=== PATIENT | male | born 1940 | race Caucasian/White ===

== ENCOUNTER → 2017-11-09 | Outpatient (CLI) | payer OTHER ==
[~2017-11-09] MED LIST: ALLOPOW4; AMIO200T4 PO
== END | disposition home or self-care (01) ==
LOC: C.LABPVFM 08:22
PROVIDERS: ATTEND Internal Medicine Cardiovascular Disease
DX: E78.5 Hyperlipidemia, unspecified (principal)

== ENCOUNTER → 2017-12-24 | Outpatient (CLI) | payer OTHER ==
[2017-12-24 18:13] LABS: BLOOD UREA NITROGEN 33 mg/dl (7-18); CALCIUM 8.9 mg/dl (8.5-10.1); CARBON DIOXIDE 23 mmol/L (21-32); CREATININE 2.11 mg/dl (0.60-1.40); GLUCOSE 137 mg/dl (70-99); SODIUM 140 mmol/L (136-145)
[2017-12-24 18:15] LABS: URIC ACID 5.6 mg/dl (2.6-7.2)
== END | disposition home or self-care (01) ==
LOC: C.LABPVFM 13:27
PROVIDERS: ATTEND Internal Medicine
DX: M10.9 Gout, unspecified (principal)

== ENCOUNTER → 2018-04-02 | Day surgery (SDC) | payer OTHER ==
[2018-02-22 14:11] VITALS: Ht 177.8 cm; Wt 122.7 kg
[~2018-04-02] VITALS: Ht 177.8 cm; Wt 122.7 kg
[~2018-04-02] MED LIST changes: +500ML BSS 0.3ML EPI 1:1000PF IRRIG ONE; +ACET-1256 PO; +ACETAMINOPHEN 325 MG TAB PO PRN; +ALLO100T PO; -ALLOPOW4; +AMVISC PLUS 0.8ML SYRINGE INT OCU ONE; +ASPI-589 PO; +ATEN-173 PO; +ATOR-24 PO; +ATROPINE SULFATE 0.1 MG/ML 5ML SYR IV PRN; +BSS FLUSH ONE; +DILT-113 PO; +EpHEDrine SULFATE INJ 50 MG/ML AMP IV PRN; +EpINEphrine INJ 1MG/ML AMP 1 MG/ML AMP ONE; +HYDR-4715 PO; +HydrALAZINE HCL 20 MG/ML VIAL ONE; +INSTA-FLEX PO; +LACTATED RINGER'S 1000ML 500 ML IV SCH; +LIDOCAINE 3.5% OPH GEL PER APPLICATION CHARGE ONE; +LIDOCAINE HCL 1% MPF 2 ML VIAL ONE; +LISI-725 PO; +MIDAZOLAM HCL 1 MG/ML 2ML VIAL ONE; +ONDANSETRON INJ 2 MG/ML 2 ML VIAL IV PRN; +POVIDONE-IODINE OP SOLN 30 ML BTL ONE; +PROPARACAINE 0.5% OP SOLN PER DROP CHARGE OPL SCH; +TERA5CAP PO; +TOBRAMYCIN/DEXAMETHASONE OPH OINT PER APPLN CHARGE ONE; +TURM500T PO
--- NOTE | 2018-04-02 08:59 | History & Physical Bridge - SC ---
H&P Re-Evaluation Bridge Note: I have examined the patient, reviewed the History & Physical and in the interval since the performance of the History & Physical I have noted the following changes of clinical significance: Diagnosis: Left Cataract Procedure: Left Cataract Removal with Lens Implant No changes noted
[2018-04-02] MEDS: PHENYLEPHRINE HCL 2.5% OP SOLN PER DROP CHARGE OPL SCH ×2 (09:01→09:09)
[2018-04-02] MEDS: TROPICAMIDE 1% OP SOLN PER DROP CHARGE OPL SCH ×2 (09:02→09:10)
[2018-04-02] MEDS: CYCLOPENTOLATE HCL 1% OP SOLN PER DROP CHARGE OPL SCH ×2 (09:03→09:12)
[2018-04-02] MEDS: KETOROLAC 0.5% OP SOLN PER DROP CHARGE OPL SCH ×2 (09:04→09:14)
[2018-04-02] MEDS: GATIFLOXACIN OP SOLN PER DROP CHARGE OPL SCH ×2 (09:05→09:16)
--- NOTE | 2018-04-02 09:41 | [facility] Operative Report ---
Operative Report Date of Service Apr 02, 2018. Operative Report 1. PREOPERATIVE DIAGNOSIS: Cataract of the left eye. 2. POSTOPERATIVE DIAGNOSIS: Same. 3. PROCEDURE: Phacoemulsification with intraocular lens implantation of the left eye. SURGEON: Dr. Ryan Khan. ANESTHESIA: Topical Lidocaine gel, 1% Non- Preserved intracameral Lidocaine, and monitored intravenous sedation. INDICATIONS FOR THE PROCEDURE: The patient is a 77 - year-old male with a history of cataract of the left eye causing significant visual impairment. The details of the proposed procedure were explained to the patient who asked appropriate questions and following discussion of all risks, benefits and alternatives agreed to have the procedure done. 4. OPERATION AND FINDINGS: DESCRIPTION OF PROCEDURE: After informed consent was obtained, the patient was brought to the Operating Room at the [facility]. The patient was placed in a supine position and then the left eye was prepped and draped in the usual sterile fashion for intraocular surgery. A drop of topical Lidocaine gel was placed in the operative eye. A wire lid speculum was then placed in the fornices. A corneal paracentesis was then created temporally. The Non-Preserved Lidocaine was then instilled into the anterior chamber. The anterior chamber was then pressurized with viscoelastic. A 2.0 mm clear corneal incision was then created temporally. A cystotome was inserted into the anterior chamber and used to create a tear in the anterior lens capsule. This capsular tear was then used to create a small flap and the flap was dragged in a counterclockwise direction in order to create a continuous curvilinear capsulorrhexis. Hydrodissection was accomplished with balanced salt solution. Phacoemulsification of the lens nucleus was then performed in a standard [id number] technique. The phaco time was 19 seconds with an average power of 14 %. The remaining cortical material was removed using irrigation aspiration. The capsular bag was then filled with viscoelastic. A [employer] MI60L +25.0 diopters lens was then loaded into the injector and injected into the capsular bag. The remaining viscoelastic was removed with the irrigation aspiration handpiece. The wound was hydrated and then checked and found to be watertight. The intraocular pressure was checked and found to be adequate. The wire lid speculum was removed and the patient's face was cleaned and dried. TobraDex ointment was placed in the inferior fornix. The patient was discharged to the Recovery Room having tolerated the procedure well. There were no complications. The patient will be seen tomorrow in the office for follow-up. I attest to the content of the Intraoperative Record and any orders documented therein. Any exceptions are noted below.
--- NOTE | 2018-04-02 09:42 | Discharge Instructions-SurgCtr ---
Discharge Instructions Date of Service Apr 02, 2018. Visit Reason for Visit: Cataract Left Eye Discharge Discharge Diagnosis / Problem: cataract Discharge Goals Goal(s): Improve function Activity Recommendations Activity Limitations: per Instructions/Follow-up section Anesthesia . Post Anesthesia Instructions: If you have had General Anesthesia or IV Sedation: * Do not drive today. * Resume driving when surgeon permits. * Do not make important decisions or sign legal documents today. * Call surgeon for: 1. Temperature elevations greater than 101 degrees F. 2. Uncontrollable pain. 3. Excessive bleeding. 4. Persistent nausea and vomiting. 5. Medication intolerance (nausea, vomiting or rash). * For nausea and vomiting use only clear liquids such as: tea, soda, bouillon until nausea subsides, then gradually increase diet as tolerated. * If you have any concerns or questions, call your surgeon's office. If physician is unavailable and it is an emergency, call 911 or go to the nearest emergency room. . Diet Recommendations Home Diet: resume previous diet Pending Studies Studies pending at discharge: no Medical Emergencies . Who to Call and When: Medical Emergencies: If at any time you feel your situation is an emergency, please call 911 immediately. . Non-Emergent Contact Non-Emergency issues call your: Interactive Producer . . "Provider Documentation" section prepared by Ryan Khan. .
[2018-04-02 09:44] VITALS: TEMP 36.2
--- NOTE | 2018-04-02 09:54 | Anesthesia Progress Nt - [facility] ---
Anesthesia Post Op Note Date & Time Apr 02, 2018 at 09:54 Vital Signs Pain Intensity: 0 Vital Signs Past 12 Hours Date Time Temp Pulse Resp B/P (MAP) Pulse Ox O2 Delivery O2 Flow Rate FiO2 04/02/18 09:44 36.2 76 18 186/82 (116) 96 Room Air 04/02/18 08:23 37.0 45 16 205/106 (139) 96 Room Air Notes Mental Status: alert / awake / arousable, participated in evaluation Pt Amnestic to Procedure: Yes Nausea / Vomiting: adequately controlled Pain: adequately controlled Airway Patency, RR, SpO2: stable & adequate BP & HR: stable & adequate Hydration State: stable & adequate Anesthetic Complications: no major complications apparent
[2018-04-02 10:06] VITALS: BP 160/76; PULSE 51; O2SAT 96
== END | disposition home or self-care (01) ==
LOC: X.SURG 07:46
PROVIDERS: ATTEND Ophthalmology
DX: H26.9 Unspecified cataract (principal); E11.9 Type 2 diabetes mellitus without complications; I12.9 Hypertensive chronic kidney disease with stage 1 through stage 4 chronic kidney disease, or unspecified chronic kidney disease; I48.2 Chronic atrial fibrillation; E66.9 Obesity, unspecified; M10.9 Gout, unspecified; N18.3 Chronic kidney disease, stage 3 (moderate); E78.5 Hyperlipidemia, unspecified; M17.10 Unilateral primary osteoarthritis, unspecified knee; E11.22 Type 2 diabetes mellitus with diabetic chronic kidney disease; Z79.899 Other long term (current) drug therapy; Z79.82 Long term (current) use of aspirin; Z82.49 Family history of ischemic heart disease and other diseases of the circulatory system; Z83.3 Family history of diabetes mellitus; Z79.01 Long term (current) use of anticoagulants

== ENCOUNTER 2021-02-04 15:49 | Observation (INO) ==
[2021-02-04 18:04] LABS: Basophils # (auto) 0.03 K/uL (0-0.2); Basophils % (auto) 0.5 %; Eosinophils # (auto) 0.36 K/uL (0-0.5); Eosinophils % (auto) 6.4 %; Hematocrit (blood only) 32.4 % (42-52); Hemoglobin 10.4 g/dL (14.0-18.0); Immature Granulocytes # (auto) 0.01 K/uL (0.00-0.02); Immature Granulocytes % (auto) 0.2 %; Lymphocytes # (auto) 0.82 K/uL (1.2-3.4); Lymphocytes % (auto) 14.6 %; Mean Corpuscular Hemoglobin 30.5 pg (25-34); Mean Corpuscular Hgb Conc 32.1 g/dL (32-36); Mean Platelet Volume 9.4 fL (7.4-10.4); Monocytes # (auto) 0.21 K/uL (0.11-0.59); Monocytes % (auto) 3.7 %; Neutrophils % (auto) 74.6 %; Platelet Count 161 K/uL (130-400); RDW Coefficient of Variation 15.5 % (11.5-14.5); RDW Standard Deviation 53.7 fL (36.4-46.3); Red Blood Count 3.41 M/uL (4.7-6.1); White Blood Count 5.63 K/uL (4.8-10.8)
[2021-02-04 18:22] LABS: Albumin Level 3.1 gm/dl (3.4-5.0); Aspartate Aminotransferase 22 U/L (15-37); BUN Creatinine Ratio 16.8 (10-20); Blood Urea Nitrogen 51 mg/dl (7-18); Calcium 8.9 mg/dl (8.5-10.1); Carbon Dioxide 26 mmol/L (21-32); Chloride 108 mmol/L (98-107); Est GFR (African American) 21.8 ml/min; Est GFR (Non-African American) 18.8 ml/min; Glucose 171 mg/dl (70-99); Lipase 172 U/L (73-393); Magnesium 2.7 mg/dl (1.8-2.4); Sodium 142 mmol/L (136-145)
[2021-02-04 18:25] LABS: Alanine Aminotransferase 25 U/L (12-78); Albumin Globulin Ratio 0.9 (0.9-2); Alkaline Phosphatase 86 U/L (45-117); Bilirubin,Total 0.3 mg/dl (0.2-1); Globulin 3.3 gm/dl (2.5-4.0); Total Protein 6.4 gm/dl (6.4-8.2)
--- NOTE | 2021-02-04 19:36 | Emergency Department Note ---
Impression & Plan JENNIFER (acute kidney injury) ED Provider Note INFORMANT: Patient and ED PROVIDER(S): Negro Sandoval MD CHIEF COMPLAINT: Abnormal kidney function PLAN: Disposition: Admitted Condition: Good Outpatient prescription management: none Referral: None MEDICAL DECISION MAKING: Patient presented to the emergency department because of abnormal labs. The patient has had worsening renal function. Blood work was obtained. He has a normal potassium. His renal function has worsened with a creatinine of 3.01. I consulted with Dr. Ryder of the [facility] nephrology. Unfortunately patient's case is somewhat complicated as he has severe hypertension and is on multiple medications. In light of the difficulty managing his medications and blood pressure issues we elected to have the patient come into the hospitalist service. The patient and are very much in agreement. He will need management of his hypertension, modification of his medications to protect his renal function, and also will need some type of diuresis given his peripheral edema. Consultation was made with , [facility] hospitalist service patient was evaluated in the ER for further management. Triage Nursing notes reviewed and agree them. Vital Signs: reviewed and remarkable for no significant abnormalities Differential diagnosis: Infection, dehydration, metabolic abnormality, electrolyte disturbance, anemia, hypoxia, cardiac sources, intracerebral event, toxicologic, neurologic, as well as other pathologies. JENNIFER, Diagnostics interpreted by me: ECG: Twelve-lead ECG reveals a sinus bradycardia with first-degree AV block at 50 bpm. LVH present. Inferior Q waves present. Possible anteroseptal infarct. No ST elevation. Normal axis. Cardiac Monitoring: Cardiac monitoring ordered by me: The patient was placed on continuous cardiac monitoring and observed. It revealed a normal sinus rhythm at 62 beats per minute without ectopy or evidence of dysrhythmia. Imaging studies: CT scan of the abdomen pelvis does not reveal any evidence of renal outflow tract obstruction. I refer you to the EMR for further details. HPI: The patient is a 80 year old male who presents to the Emergency Room with complaints of abnormal labs. This started today at his blood draw and is noted to be due to his kidney function. The patient states his PCP was doing labs to check his kidney function and he was notified that it is gotten worse and the patient was directed to the ER. The patient also notes the following associated symptoms, none. The patient has had no medication changes or prescriptions for relieving factors. Current pain is rated as 0/10. Patient has history of chronic low back pain if he moves the wrong way but currently is doing well. Pt denies LOC, headache, fevers, chills, diaphoresis, visual changes, neck pain, chest pain, breathing difficulties, nausea, vomiting, abdominal pain, back pain, melena, hematochezia, urinary symptoms, numbness, weakness, lymphadenopathy, rash, or other complaints. ROS: See above HPI for pertinent positives & negatives. A total of 10 systems reviewed and were otherwise negative. PAST MEDICAL HISTORY:See Below , renal insufficiency, anemia PAST SURGICAL HISTORY:See Below, FAMILY HISTORY:See Below SOCIAL HISTORY:See Below, HOME MEDICATIONS:See Below ALLERGIES:See Below VITALS:See Below PHYSICAL EXAMINATION: GENERAL: Awake, alert, well-appearing, in no distress HENT: Normocephalic, atraumatic. Oropharynx unremarkable. EYES: Normal conjunctiva. Sclera non-icteric. NECK: Inspection normal. Non-tender. Supple. No nuchal rigidity. FROM. No masses. RESPIRATORY: Clear to auscultation. No wheezes. No rales. Normal respiratory effort. CARDIAC: Normal rate. Normal rhythm. No murmurs. No rubs. Extremities warm and well perfused. Pulses equal. No JVD. GI: Soft, non-distended. No tenderness to palpation. No rebound or guarding. No masses. RECTAL: Deferred. MUSCULOSKELETAL: Atraumatic. Chest examination reveals no tenderness. The back is symmetrical on inspection without obvious abnormality. There is no CVA tenderness to palpation. No joint edema. LOWER EXTREMITIES: Calves are equal size bilaterally and non-tender. 2+ edema. No discoloration. NEURO: Normal sensorium. No sensory or motor deficits noted. SKIN: No rash or jaundice noted. Negro Sandoval MD Past Med/Surg History Medical History (Updated 02/04/21 @ 19:33 by Negro Sandoval MD) Anemia Hypertension Social History Smoking Status: Never smoker Feels Safe at Home: Yes Allergies Allergies Allergy/AdvReac Type Severity Reaction Status Date / Time No Known Allergies Allergy Unknown Verified 02/04/21 17:09 Home Meds Home Medications Medication Instructions Recorded Confirmed atorvastatin 40 mg tablet 40 mg PO QPM 06/06/19 02/04/21 blood sugar diagnostic #10 ea 06/06/19 12/20/20 cyanocobalamin (vitamin B-12) 500 500 mcg PO DAILY 11/12/20 02/04/21 mcg tablet acetaminophen 325 mg capsule 650 mg PO Q4H PRN cap 12/20/20 02/04/21 calcitriol 0.25 mcg capsule 0.25 mcg PO MOWEFR cap 12/20/20 02/04/21 cholecalciferol (vitamin D3) 50 50 mcg PO DAILY 12/20/20 02/04/21 mcg (2,000 unit) capsule docusate sodium 100 mg capsule 100 mg PO BID 12/20/20 02/04/21 hydralazine 50 mg tablet 75 mg PO BID tab 12/20/20 02/04/21 multivitamin with minerals 1 tab PO DAILY 12/20/20 02/04/21 polyethylene glycol 3350 17 17 g PO DAILY 12/20/20 02/04/21 gram/dose oral powder atenolol 25 mg PO BID 02/04/21 02/04/21 diltiazem HCl 180 mg PO DAILY 02/04/21 02/04/21 furosemide 20 mg PO DAILY 02/04/21 02/04/21 gabapentin 100 mg PO BID 02/04/21 02/04/21 lisinopril 20 mg PO BID 02/04/21 02/04/21 terazosin 5 mg PO HS 02/04/21 02/04/21 Previous Rx's Medication Instructions Recorded allopurinol 100 mg tablet 100 mg PO BID #60 tab 04/14/19 amiodarone 200 mg tablet 200 mg PO DAILY #90 tab 01/18/21 Results & Data (ED) Vital Signs Vital Signs - 24 hr 02/04/21 15:57 02/04/21 17:35 02/04/21 18:06 Temperature 36.5 C Temperature Source Temporal Artery Scan Pulse Rate 59 L 70 Pulse Rate from SpO2 Sensor Pulse Strength [Bilateral Dorsalis Pedis] Respiratory Rate 20 20 Respiratory Effort / Characteristics Non-Labored Spontaneous Respiratory Depth Normal Respiratory Pattern Blood Pressure 159/82 H Blood Pressure Mean 107 Pulse Oximetry 95 Oxygen Delivery Method Room Air Room Air Sepsis Recent Fever Within 48 Hours No Sepsis New/Unexplained Change in Mental Status N/A Sepsis Action Taken by Nursing No Action Required 02/04/21 18:30 02/04/21 18:38 02/04/21 19:24 Temperature Temperature Source Pulse Rate 56 L 60 Pulse Rate from SpO2 Sensor Pulse Strength [Bilateral Dorsalis Pedis] Normal Respiratory Rate 15 23 Respiratory Effort / Characteristics Non-Labored Spontaneous Respiratory Depth Normal Respiratory Pattern Regular Blood Pressure 174/84 H Blood Pressure Mean 114 Pulse Oximetry Oxygen Delivery Method Sepsis Recent Fever Within 48 Hours Sepsis New/Unexplained Change in Mental Status Sepsis Action Taken by Nursing 02/04/21 19:31 02/04/21 20:01 02/04/21 20:03 Temperature Temperature Source Pulse Rate 64 57 L 58 L Pulse Rate from SpO2 Sensor 64 58 L 58 L Pulse Strength [Bilateral Dorsalis Pedis] Respiratory Rate 24 17 18 Respiratory Effort / Characteristics Respiratory Depth Respiratory Pattern Blood Pressure 183/91 H 203/87 H 209/98 H Blood Pressure Mean 121 125 135 Pulse Oximetry 96 95 95 Oxygen Delivery Method Room Air Room Air Room Air Sepsis Recent Fever Within 48 Hours Sepsis New/Unexplained Change in Mental Status Sepsis Action Taken by Nursing 02/04/21 20:26 02/04/21 21:01 Temperature Temperature Source Pulse Rate 59 L 62 Pulse Rate from SpO2 Sensor 59 L 62 Pulse Strength [Bilateral Dorsalis Pedis] Respiratory Rate 14 21 Respiratory Effort / Characteristics Respiratory Depth Respiratory Pattern Blood Pressure 197/92 H 197/101 H Blood Pressure Mean 127 133 Pulse Oximetry 96 95 Oxygen Delivery Method Room Air Room Air Sepsis Recent Fever Within 48 Hours Sepsis New/Unexplained Change in Mental Status Sepsis Action Taken by Nursing Laboratory Data Result diagrams: 02/04/21 17:55 02/04/21 17:55 Lab Results 02/04/21 02/04/21 02/04/21 Range/Units 17:55 17:55 19:27 WBC 5.63 (4.8-10.8) K/uL RBC 3.41 L (4.7-6.1) M/uL Hgb 10.4 L (14.0-18.0) g/dL Hct 32.4 L (42-52) % MCV 95.0 (80-100) fL MCH 30.5 (25-34) pg MCHC 32.1 (32-36) g/dL RDW Std Deviation 53.7 H (36.4-46.3) fL RDW Coeff of Joanne 15.5 H (11.5-14.5) % Plt Count 161 (130-400) K/uL MPV 9.4 (7.4-10.4) fL Immature Gran % (Auto) 0.2 % Neut % (Auto) 74.6 % Lymph % (Auto) 14.6 % Green % (Auto) 3.7 % Eos % (Auto) 6.4 % Baso % (Auto) 0.5 % Neut # (Auto) 4.20 (1.4-6.5) K/uL Lymph # (Auto) 0.82 L (1.2-3.4) K/uL Green # (Auto) 0.21 (0.11-0.59) K/uL Eos # (Auto) 0.36 (0-0.5) K/uL Baso # (Auto) 0.03 (0-0.2) K/uL Immature Gran # (Auto) 0.01 (0.00-0.02) K/uL Sodium 142 (136-145) mmol/L Potassium 4.0 (3.5-5.1) mmol/L Chloride 108 H (98-107) mmol/L Carbon Dioxide 26 (21-32) mmol/L Anion Gap 8.0 (3-11) BUN 51 H (7-18) mg/dl Creatinine 3.01 H (0.6-1.4) mg/dl Est Cr Clr Drug Dosing Not Reportable Est GFR ( Amer) 21.8 ml/min Est GFR (Non-Af Amer) 18.8 ml/min BUN/Creatinine Ratio 16.8 (10-20) Glucose 171 H (70-99) mg/dl Calcium 8.9 (8.5-10.1) mg/dl Magnesium 2.7 H (1.8-2.4) mg/dl Total Bilirubin 0.3 (0.2-1) mg/dl AST 22 (15-37) U/L ALT 25 (12-78) U/L Alkaline Phosphatase 86 (45-117) U/L Total Protein 6.4 (6.4-8.2) gm/dl Albumin 3.1 L (3.4-5.0) gm/dl Globulin 3.3 (2.5-4.0) gm/dl Albumin/Globulin Ratio 0.9 (0.9-2) Lipase 172 (73-393) U/L Urine Color Yellow Urine Appearance Clear (Clear) Urine pH 5.0 (4.5-7.5) Ur Specific [place] 1.017 (1.000-1.030) Urine Protein 1+ H (Negative) Urine Glucose (UA) Negative (Negative) Urine Ketones Negative (Negative) Urine Blood Negative (Negative) Urine Nitrite Negative (Negative) Urine Bilirubin Negative (Negative) Urine Urobilinogen Negative (Negative) Ur Leukocyte Esterase 1+ H (Negative) Urine WBC (Auto) 5-10 H (0-5) /hpf Urine RBC (Auto) 0-4 (0-4) /hpf U Hyaline Cast (Auto) 1-5 (0-5) /lpf U Epithel Cells (Auto) >30 H (0-5) /lpf Urine Bacteria (Auto) Negative (Negative) Imaging Data Radiologist's Impression: Abdomen/Pelvis CT 02/04/21 19:46 CT OF THE ABDOMEN AND PELVIS WITHOUT CONTRAST CLINICAL HISTORY: Acute kidney injury. COMPARISON STUDY: Renal ultrasound June 27, 2010. TECHNIQUE: Axial images of the abdomen and pelvis were obtained without IV contrast. Images were reviewed in the axial, sagittal, and coronal planes. Automated exposure control was utilized for the study. A dose lowering technique was utilized adhering to the principles of ALARA. FINDINGS: This exam is compromised by body wall contacting the gantry. Dilatation of visualized portions of the ascending aorta, measuring up to 4.9 cm is noted. Moderate cardiomegaly is noted with trace pericardial fluid. There is left gynecomastia. The liver is slightly dense. Note is made of a 2.4 cm calcified gallstone within the gallbladder. There is no pericholecystic infiltration. Mild splenomegaly is noted. Low-attenuation left adrenal nodule favors an adenoma. There is no peripancreatic infiltration. There is no evidence for a bowel obstruction. There is moderate to marked bilateral renal atrophy. There is no hydronephrosis. No ureteral calculi are present. There is a possible punctate left renal calculus. There are multiple water attenuation bilateral renal lesions. There are a few small hyperdense bilateral renal lesions. The largest is a 1.6 cm lesion within the midpole of the left kidney. Progressive loss of height of the L5 compression fracture is noted since CT of November 05, 2020. There are no suspicious lesions within visualized skeletal structures. Bladder is mildly distended. IMPRESSION: 1. Moderate to marked bilateral renal atrophy. No ureteral calculi. No hydronephrosis. Possible punctate left renal calculus. Mildly distended bladder. 2. Cholelithiasis. 3. Cardiomegaly. Dilatation of visualized portions of the ascending aorta, measuring up to 4.9 cm. 4. No bowel obstruction. 5. Multiple water attenuation bilateral renal lesions suggestive of cysts. Several hyperdense left renal lesions which could reflect hyperdense cysts or small solid renal lesions. ACT 112: Negative or not required by law. Electronically signed by: Del Rowan M.D. 02/04/2021 9:14 PM Discharge Plan Visit Data Chief Complaint: Abnormal Labs/Diagnostic Testing Stated Complaint: SENT BY - KIDNEYS NOT FUNCTIONING CORRECTLY ED Provider: Negro Sandoval Discharge Problem: JENNIFER (acute kidney injury) Forms Stand Alone Forms: My [facility] I Love QC Prescriptions Prescriptions: No Action allopurinol 100 mg tablet 100 mg PO BID Qty: 60 RF: 2 hydralazine 50 mg tablet 75 mg PO BID RF: 0 amiodarone 200 mg tablet 200 mg PO DAILY Qty: 90 RF: 3 atorvastatin 40 mg tablet 40 mg PO QPM RF: 0 (DME) OneTouch Ultra Blue Test Strip strip See Dose Instructions .ROUTE .MEDSUPPLY Qty: 10 RF: 0 cyanocobalamin (vitamin B-12) 500 mcg tablet 500 mcg PO DAILY RF: 0 cholecalciferol (vitamin D3) 50 mcg (2,000 unit) capsule 50 mcg PO DAILY RF: 0 polyethylene glycol 3350 17 gram/dose powder 17 g PO DAILY RF: 0 multivitamin with minerals Tablet 1 tab PO DAILY RF: 0 docusate sodium 100 mg capsule 100 mg PO BID RF: 0 calcitriol [Rocaltrol] 0.25 mcg capsule 0.25 mcg PO MOWEFR RF: 0 acetaminophen 325 mg capsule 650 mg PO Q4H PRN (Reason: Fever Or Pain) RF: 0 furosemide 20 mg tablet 20 mg PO DAILY RF: 0 diltiazem HCl 180 mg capsule,extended release 24hr 180 mg PO DAILY RF: 0 lisinopril 20 mg tablet 20 mg PO BID RF: 0 gabapentin 100 mg capsule 100 mg PO BID RF: 0 terazosin 5 mg capsule 5 mg PO HS RF: 0 atenolol 25 mg tablet 25 mg PO BID RF: 0
[2021-02-04 19:59] LABS: Appearance Urine Clear (Clear); Bacteria Urine Automated Negative (Negative); Bilirubin Urine Negative (Negative); Blood Urine Negative (Negative); Color Urine Yellow; Epithelial Cell Urine Auto >30 /lpf (0-5); Glucose Urine UA Negative (Negative); Ketones Urine Negative (Negative); Leukocyte Esterase Urine 1+ (Negative); Nitrite Urine Negative (Negative); Protein Urine 1+ (Negative); RBC Urine Automated 0-4 /hpf (0-4); Specific Gravity Urine 1.017 (1.000-1.030); Urobilinogen Urine Negative (Negative)
--- NOTE | 2021-02-04 21:15 | CT Scan Report ---
CT OF THE ABDOMEN AND PELVIS WITHOUT CONTRAST CLINICAL HISTORY: Acute kidney injury. COMPARISON STUDY: Renal ultrasound June 27, 2010. TECHNIQUE: Axial images of the abdomen and pelvis were obtained without IV contrast. Images were revi ewed in the axial, sagittal, and coronal planes. Automated exposure control was utilized for the reji dy. A dose lowering technique was utilized adhering to the principles of ALARA. FINDINGS: This exam is compromised by body wall contacting the gantry. Dilatation of visualized porti ons of the ascending aorta, measuring up to 4.9 cm is noted. Moderate cardiomegaly is noted with trac e pericardial fluid. There is left gynecomastia. The liver is slightly dense. Note is made of a 2.4 c m calcified gallstone within the gallbladder. There is no pericholecystic infiltration. Mild splenome simeon is noted. Low-attenuation left adrenal nodule favors an adenoma. There is no peripancreatic infi ltration. There is no evidence for a bowel obstruction. There is moderate to marked bilateral renal a trophy. There is no hydronephrosis. No ureteral calculi are present. There is a possible punctate lef t renal calculus. There are multiple water attenuation bilateral renal lesions. There are a few small hyperdense bilateral renal lesions. The largest is a 1.6 cm lesion within the midpole of the left ki dney. Progressive loss of height of the L5 compression fracture is noted since CT of November 05, 2020. There are no suspicious lesions within visualized skeletal structures. Bladder is mildly distended. IMPRESSION: 1. Moderate to marked bilateral renal atrophy. No ureteral calculi. No hydronephrosis. Possible punct ate left renal calculus. Mildly distended bladder. 2. Cholelithiasis. 3. Cardiomegaly. Dilatation of visualized portions of the ascending aorta, measuring up to 4.9 cm. 4. No bowel obstruction. 5. Multiple water attenuation bilateral renal lesions suggestive of cysts. Several hyperdense left re nal lesions which could reflect hyperdense cysts or small solid renal lesions. ACT 112: Negative or not required by law. Electronically signed by: Del Rowan M.D. 02/04/2021 9:14 PM
[2021-02-04] MEDS ORDERED: hydrALAZINE TAB 50 MG TAB PO STA (22:01)
[2021-02-04] MEDS ORDERED: TERAZOSIN HCL 5 MG CAP PO STA (22:01)
[2021-02-04] MEDS ORDERED: allopurinoL 100 MG TAB PO STA (22:01)
[2021-02-04] MEDS ORDERED: GABAPENTIN 100 MG CAP PO STA (22:01)
[2021-02-05] MEDS ORDERED: POLYETHYLENE (MIRALAX) 17 GM PACK PO PRN (01:15)
[2021-02-05] MEDS ORDERED: hydrALAZINE HCL 20 MG/ML VIAL IV PRN (01:15)
[2021-02-05] MEDS ORDERED: NITROGLYCERIN SL 0.4 MG/TAB TAB SL PRN (01:15)
[2021-02-05] MEDS ORDERED: ONDANSETRON INJ 2 MG/ML 2 ML VIAL IV PRN (01:15)
[2021-02-05] MEDS ORDERED: CALCITRIOL 0.25 MCG CAPSULE PO SCH (02:00)
[2021-02-05] MEDS: ACETAMINOPHEN 325 MG TAB PO PRN ×2 (02:15→20:23)
[2021-02-05] MEDS: HEPARIN SOD 5,000 UNIT/0.5 ML VIAL SQ SCH ×4 (02:15→22:46)
[2021-02-05] MEDS ORDERED: GLUCOSE 40% GEL 15 GM TUBE PO PRN (05:15)
[2021-02-05] MEDS ORDERED: DEXTROSE 50% 50 ML SYRINGE IV PRN (05:15)
[2021-02-05] MEDS ORDERED: GLUCAGON FOR INJ 1 MG VIAL IM PRN (05:15)
[2021-02-05] MEDS ORDERED: GLUCOSE 10 TABS/TUBE PO PRN (05:15)
[2021-02-05] MEDS ORDERED: CARBOHYDRATES FOR HYPOGLYCEMIA PO PRN (05:15)
[2021-02-05 06:10] LABS: Basophils # (auto) 0.03 K/uL (0-0.2); Basophils % (auto) 0.6 %; Eosinophils # (auto) 0.32 K/uL (0-0.5); Eosinophils % (auto) 6.9 %; Hemoglobin 9.6 g/dL (14.0-18.0); Immature Granulocytes # (auto) 0.01 K/uL (0.00-0.02); Immature Granulocytes % (auto) 0.2 %; Lymphocytes # (auto) 0.64 K/uL (1.2-3.4); Lymphocytes % (auto) 13.8 %; Mean Corpuscular Hemoglobin 30.2 pg (25-34); Mean Corpuscular Volume 94.3 fL (80-100); Mean Platelet Volume 9.5 fL (7.4-10.4); Monocytes # (auto) 0.29 K/uL (0.11-0.59); Monocytes % (auto) 6.2 %; Neutrophils # (auto) 3.36 K/uL (1.4-6.5); Neutrophils % (auto) 72.3 %; Platelet Count 139 K/uL (130-400); RDW Coefficient of Variation 15.4 % (11.5-14.5); RDW Standard Deviation 52.8 fL (36.4-46.3); Red Blood Count 3.18 M/uL (4.7-6.1); White Blood Count 4.65 K/uL (4.8-10.8)
[2021-02-05 06:23] LABS: Estimated Average Glucose 128 mg/dl; Hemoglobin A1C 6.1 % (4.5-5.6)
[2021-02-05 06:28] LABS: BUN Creatinine Ratio 16.4 (10-20); Calcium 8.5 mg/dl (8.5-10.1); Creatinine Clr Calc Pharmacy 29.2 ml/min; Est GFR (Non-African American) 22.4 ml/min; Magnesium 2.6 mg/dl (1.8-2.4); Potassium 4.1 mmol/L (3.5-5.1)
[2021-02-05] MEDS: INSULIN ASPART 100 UNITS/ML 3 ML PEN SC SCH ×4 (07:52→20:57)
[2021-02-05] MEDS: CHOLECALCIFEROL 1,000 UNITS 25 MCG TAB PO SCH (08:47)
[2021-02-05] MEDS: CEROVITE ADV FORMULA TAB PO SCH (08:47)
[2021-02-05] MEDS: AMIODARONE 200 MG TAB PO SCH (08:47)
[2021-02-05] MEDS: CYANOCOBALAMIN 500 MCG TABLET (VITAMIN B-12) PO SCH (08:47)
[2021-02-05] MEDS: GABAPENTIN 100 MG CAP PO SCH ×2 (08:47→20:27)
[2021-02-05] MEDS: DOCUSATE SODIUM 100 MG CAP PO SCH ×2 (08:48→20:25)
[2021-02-05] MEDS: allopurinoL 100 MG TAB PO SCH ×2 (08:48→20:25)
[2021-02-05] MEDS: POLYETHYLENE (MIRALAX) 17 GM PACK PO SCH (08:48)
[2021-02-05] MEDS: dilTIAZem HCL 180 MG CAPCR PO SCH (08:48)
[2021-02-05] MEDS ORDERED: FUROSEMIDE 20 MG TAB PO SCH (09:00)
[2021-02-05] MEDS ORDERED: hydrALAZINE TAB 50 MG TAB PO SCH (09:00)
--- NOTE | 2021-02-05 09:46 | Ultrasound Report ---
US venous doppler LE BI CLINICAL HISTORY: B/L LOWER EXTREMITY EDEMA. DVT? COMPARISON STUDY: No previous studies for comparison. FINDINGS: Real-time and color flow Doppler imaging were performed. Flow was seen within the femoral, popliteal and calf veins with no intraluminal thrombus demonstrated. The saphenous vein is patent. IMPRESSION: No evidence of lower extremity DVT. ACT 112: Negative or not required by law. Electronically signed by: Robbi Marie M.D. 02/05/2021 9:45 AM
[2021-02-05] MEDS ORDERED: NIFEdipine EXTENDED REL 30 MG TABCR PO STA (13:37)
--- NOTE | 2021-02-05 14:50 | History and Physical Report ---
DATE OF ADMISSION: 02/04/2021 CHIEF COMPLAINT: Abnormal labs, JENNIFER. HISTORY OF PRESENT ILLNESS: This is a 80-year-old male with past medical history significant for type 2 diabetes, chronic kidney disease stage IV, paroxysmal atrial fibrillation, history of hypertension, morbid obesity, gout arthropathy, osteoarthritis of right knee, was sent in by PCP because of abnormal labs showing creatinine of 3. His baseline creatinine is around 1.8-2. The patient is currently resting comfortably and hemodynamically stable. He has chronic back pain for which he had steroid shot in the past, but lately was not given because of lower extremity edema as per patient. He says lower extremity edema is better now. He ambulates with a walker. Appetite is okay. No chest pain or sob. No dysphagia, no headache, no blurred vision, no earache, no runny nose, no sore throat, no nausea, no abdominal pain. Normal bowel and bladder movements. No blood in stool or black stools. No burning micturition. Currently resting comfortably and hemodynamically stable. ALLERGIES: No known drug allergies. PAST MEDICAL HISTORY: As mentioned above. PAST SURGICAL HISTORY: Injection of lumbosacral spine, appendectomy. MEDICATIONS: The patient is on Tylenol 650 mg p.o. q. 4 hours p.r.n., allopurinol 100 mg p.o. b.i.d., amiodarone 200 mg p.o. daily, atorvastatin 40 mg p.o. daily, calcitriol 0.25 mcg p.o. Sunday, Sunday and Sunday, vitamin D 50 mcg p.o. daily, vitamin B12 500 mcg p.o. daily, diltiazem 180 mg p.o. daily, Colace 100 mg p.o. b.i.d., Lasix 20 mg p.o. daily, gabapentin 100 mg p.o. b.i.d., hydralazine 50 mg p.o. b.i.d., lisinopril 20 mg p.o. b.i.d., multivitamin with minerals 1 tablet p.o. daily, MiraLax 17 g p.o. daily, terazosin 5 mg p.o. at bedtime. FAMILY HISTORY: Significant for father has hypertension. Paternal grandfather had melanoma, diabetes. Mother has possible aneurysms. SOCIAL HISTORY: . No smoking. Alcohol occasional. No drug use. REVIEW OF SYMPTOMS: As per HPI. Rest of review of systems negative. PHYSICAL EXAMINATION: GENERAL: The patient is obese, not in acute distress. VITAL SIGNS: Temperature 36.5, pulse 62, respiratory rate 21, blood pressure 197/101, oxygen 95% on room air. HEENT: Pupils equal, round, and reactive to light. Oral mucosa moist. NECK: No JVD, no neck masses. CARDIOVASCULAR: S1, S2 heard, regular rate and rhythm, no murmur, no gallop. RESPIRATORY SYSTEM: Normal AP diameter. No accessory muscle use. No wheezing, no crackles. ABDOMEN: Soft, bowel sounds present, nontender. No distention. CENTRAL NERVOUS SYSTEM: Cranial nerves II-XII grossly intact. Nonfocal. EXTREMITIES: Bilateral lower extremities gross edema seen, no erythema seen. LABORATORY DATA: WBC 5.6, hemoglobin 10.4, hematocrit 32.4, platelets 161. Sodium 142, potassium 4, chloride 108, bicarbonate 26, BUN 51, creatinine 3.01. Serum glucose 171, calcium 8.9, magnesium 2.3, total bilirubin 0.3, AST 22, ALT 25, alkaline phosphatase is 86, lipase 172. Urinalysis ,+1 protein, +1 leukocyte esterase, negative for bacteria. IMAGING DATA: CT of abdomen and pelvis, moderate to marked bilateral renal atrophy. No ureteral calculi, no hydronephrosis, possible punctate left renal calculus, mildly distended bladder, cholelithiasis, cardiomegaly with dilatation of the visualized portions of the ascending aorta, measuring up to 4.9 cm. No bowel obstruction, multiple water attenuation on bilateral renal lesions suggestive of cyst, several hypodense left renal lesions, which could represent a hypodense cyst or small solid renal lesions. EKG: Sinus bradycardia with first degree AV block at a rate of 58, no acute ST changes seen. ASSESSMENT AND PLAN: This is a 80-year-old male who presents with abnormal labs. 1. Acute kidney injury on chronic kidney disease stage IV. Baseline creatinine 1.8-2, present creatinine of 3. Holding lisinopril. Continue Lasix. . CAT scan of the abdomen and pelvis was okay. Possible urinary tract infection, though urine bacteria negative. We will empirically start on Rocephin. Follow the repeat labs in a.m. Consult nephrology for further recommendations. 2. Hypertension, hypertensive urgency. Holding his lisinopril because of JENNIFER. Continue Lasix 20 mg daily, diltiazem 180 mg p.o. daily, hydralazine 50 mg p.o. b.i.d. and continue with terazosin 5 mg p[address] at bedtime. Place on IV hydralazine p.r.n., monitor the blood pressure . 3. History of paroxysmal atrial fibrillation on amiodarone and diltiazem, not on anticoagulation. 4. Morbid obesity, needs counseling. 5. Type 2 diabetes, not on any medications. Place on insulin sliding scale. Follow HbA1c levels. 7. Gout arthropathy, continue allopurinol. 8. Hyperlipidemia, on statin. 9. Renal lesions. cyst vs solid lesions. Needs followup. 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 Needs followup. 11 Deep venous thrombosis prophylaxis. heparin subQ. DISPOSITION: Closely monitor in the med tele. PT and OT prior to discharge. Social service to help with discharge planning. MONAE
--- NOTE | 2021-02-05 14:54 | Electrocardiogram Report ---
Test Reason : Blood Pressure : / mmHG Vent. Rate : 058 BPM Atrial Rate : 058 BPM P-R Int : 260 ms QRS Dur : 098 ms QT Int : 494 ms P-R-T Axes : 061 -24 015 degrees QTc Int : 484 ms Sinus bradycardia with 1st degree A-V block Minimal voltage criteria for LVH, may be normal variant Inferior infarct , age undetermined Poor R wave progression, consider anterior VT vs. lead placement vs. LVH Abnormal ECG When compared with ECG of 02-FEB-2004 09:59, [place] interval has increased T wave amplitude has decreased in Anterior leads Confirmed by Abel Pitt ([id number]) on 02/05/2021 2:53:47 PM Referred By: Claudio Kurtz Confirmed By:Abel Pitt
[2021-02-05] MEDS: hydrALAZINE TAB 50 MG TAB PO SCH ×2 (15:19→20:24)
[2021-02-05] MEDS: FUROSEMIDE 40 MG TAB PO SCH (15:19)
--- NOTE | 2021-02-05 15:25 | Hospitalist Progress Note ---
Date of Service February 05, 2021 Assessment & Plan (1) JENNIFER (acute kidney injury): Has chronic kidney disease with baseline creatinine about 1.8-2 Has had creatinine checked at doctor's office which was noted to be 3 and the patient was complaining weakness His lisinopril has been on hold Creatinine has been improving CT scan of the abdomen and pelvis showed moderate to marked bilateral renal atrophy. No ureteral calculi. No hydronephrosis. Possible punctate left renal calculus and mildly distended bladder (2) Paroxysmal atrial fibrillation: Off anticoagulation long time ago EKG remains in sinus rhythm Continue with current medications Bilateral leg swelling Ultrasound has been negative for any DVT Will need more Lasix to continue diuresis Appreciate nephrology input and recommendation (3) Hypertension: Has been on multiple medications to control blood pressure Lisinopril has been on hold due to increasing creatinine Blood pressure remains elevated at 195/83 Medications have been adjusted by the [employer] inspector Likely discharge home tomorrow (4) Type 2 diabetes mellitus: We will continue with SSI (5) Hyperlipidemia: Continue statin DVT prophylaxis Subcu heparin Admission and Anticipated Discharge Date Admission Date: February 04, 2021 Subjective 02/05/2021 The patient was seen and examined in telemetry unit He was admitted with JENNIFER on CKD from his primary care's office Only complaint was weakness He remains stable and has been feeling a little better since admission Review of Systems Review of Systems: All systems reviewed and are unremarkable except as noted below Neurologic: + generalized weakness Physical Exam Physical Exam: Lying in bed comfortably Constitutional: well developed, well nourished and + obese; not ill appearing Eyes: PERRL, conjunctivae normal, anicteric sclerae ENMT: external ear and nose normal, oropharynx normal Neck: trachea midline, no thyromegaly Respiratory: no respiratory distress Auscultation: lungs clear to au scultation bilaterally and + diminished lung sounds Cardiovascular: Rate/Rhythm: regular rate and regular rhythm Heart Sounds: no murmur Extremities: + edema (Bilateral 1+ leg edema, no calf tenderness) Gastrointestinal (Abdomen): Inspection/Auscultation: normal bowel sounds; abdomen not distended Percussion/Palpation: abdomen soft; abdomen nontender Musculoskeletal: No acute arthritis in any joint Neurologic: Alert, awake and oriented x3. No focal sensory and motor deficit appreciated Results & Data Results & Data ([facility]) Vital Signs (Past 12 Hours) Vital Signs Temp Pulse Pulse Resp BP Pulse Ox 02/05/21 11:25 37.0 C 63 20 195/83 H 95 02/05/21 07:36 54 L 02/05/21 07:35 37.3 C 58 L 20 179/67 H 95 Laboratory Results Short CBC 02/04/21 02/05/21 Range/Units 17:55 05:51 WBC 5.63 4.65 L (4.8-10.8) K/uL Hgb 10.4 L 9.6 L (14.0-18.0) g/dL Hct 32.4 L 30.0 L (42-52) % Plt Count 161 139 (130-400) K/uL BMP 02/04/21 02/05/21 17:55 05:51 Sodium 142 145 Potassium 4.0 4.1 Chloride 108 H 112 H Carbon Dioxide 26 27 BUN 51 H 43 H Creatinine 3.01 H 2.60 H D Glucose 171 H 115 H Calcium 8.9 8.5 Liver Function 02/04/21 Range/Units 17:55 Total Bilirubin 0.3 (0.2-1) mg/dl AST 22 (15-37) U/L ALT 25 (12-78) U/L Alkaline Phosphatase 86 (45-117) U/L Albumin 3.1 L (3.4-5.0) gm/dl Urine 02/04/21 Range/Units 19:27 Urine Color Yellow Urine Appearance Clear (Clear) Urine pH 5.0 (4.5-7.5) Ur Specific [place] 1.017 (1.000-1.030) Urine Protein 1+ H (Negative) Urine Glucose (UA) Negative (Negative) Medications Administered Current Inpatient Medications Acetaminophen (Acetaminophen 325 Mg Tab) 650 mg PO Q4H PRN PRN Reason: Pain or Fever Stop: 03/07/21 01:14 Last Admin: 02/05/21 02:15 Dose: 650 mg Documented by: Allopurinol (Allopurinol 100 Mg Tab) 100 mg PO BID CHETNA Stop: 03/07/21 08:59 Last Admin: 02/05/21 08:48 Dose: 100 mg Documented by: Amiodarone HCl (Amiodarone 200 Mg Tab) 200 mg PO DAILY CHETNA Stop: 03/07/21 08:59 Last Admin: 02/05/21 08:47 Dose: 200 mg Documented by: Atorvastatin Calcium (Atorvastatin 40 Mg Tab) 40 mg PO QPM CHETNA Stop: 03/07/21 20:59 Calcitriol (Calcitriol 0.25 Mcg Capsule) 0.25 mcg PO MoWeFr@0900 CHETNA Stop: 03/07/21 01:59 Last Admin: 02/05/21 02:15 Dose: 0.25 mcg Documented by: Cyanocobalamin (Cyanocobalamin 500 Mcg Tablet (Vitamin B-12)) 500 mcg PO DAILY CHETNA Stop: 03/07/21 08:59 Last Admin: 02/05/21 08:47 Dose: 500 mcg Documented by: Dextrose (Dextrose 50% 50 Ml Syringe) 25 - 50 ml IV UD PRN; Protocol PRN Reason: Hypoglycemia Protocol Stop: 03/07/21 05:14 Diltiazem HCl (Diltiazem Hcl 180 Mg Capcr) 180 mg PO DAILY CHETNA Stop: 03/07/21 08:59 Last Admin: 02/05/21 08:48 Dose: 180 mg Documented by: Docusate Sodium (Docusate Sodium 100 Mg Cap) 100 mg PO BID CHETNA Stop: 03/07/21 08:59 Last Admin: 02/05/21 08:48 Dose: 100 mg Documented by: Furosemide (Furosemide 40 Mg Tab) 40 mg PO DAILY CHETNA Stop: 03/07/21 13:44 Last Admin: 02/05/21 15:19 Dose: 40 mg Documented by: Gabapentin (Gabapentin 100 Mg Cap) 100 mg PO BID CHETNA Stop: 03/07/21 08:59 Last Admin: 02/05/21 08:47 Dose: 100 mg Documented by: Glucagon (Glucagon For Inj 1 Mg Vial) 1 mg IM UD PRN; Protocol PRN Reason: Hypoglycemia Protocol Stop: 03/07/21 05:14 Glucose (Glucose 40% Gel 15 Gm Tube) 15 - 30 gm PO UD PRN; Protocol PRN Reason: Hypoglycemia Protocol Stop: 03/07/21 05:14 Glucose (Glucose 10 Tabs/Tube) 4 - 8 tabs PO UD PRN; Protocol PRN Reason: Hypoglycemia Protocol Stop: 03/07/21 05:14 Heparin Sodium (Porcine) (Heparin Sod 5,000 Unit/0.5 Ml Vial) 5,000 units SQ Q8 CHETNA Stop: 03/07/21 01:14 Last Admin: 02/05/21 14:41 Dose: 5,000 units Documented by: Hydralazine HCl (Hydralazine Hcl 20 Mg/Ml Vial) 7.5 mg IV Q6H PRN PRN Reason: Hypertension Stop: 03/07/21 01:14 Hydralazine HCl (Hydralazine Tab 50 Mg Tab) 100 mg PO BID CHETNA Stop: 03/07/21 13:44 Last Admin: 02/05/21 15:19 Dose: 100 mg Documented by: Insulin Aspart (Insulin Aspart 100 Units/Ml 3 Ml Pen) 0 units SC ACHS CHETNA Stop: 03/07/21 07:29 Last Admin: 02/05/21 11:48 Dose: Not Given Documented by: Miscellaneous (Carbohydrates For Hypoglycemia ) 15 - 30 gm PO UD PRN PRN Reason: Hypoglycemia Treatment Stop: 03/07/21 05:14 Multivitamins/Minerals (Cerovite Adv Formula Tab) 1 tab PO DAILY CHETNA Stop: 03/07/21 08:59 Last Admin: 02/05/21 08:47 Dose: 1 tab Documented by: Nitroglycerin (Nitroglycerin Sl 0.4 Mg/Tab Tab) 0.4 mg SL UD PRN PRN Reason: Chest Pain Stop: 03/07/21 01:14 Ondansetron HCl (Ondansetron Inj 2 Mg/Ml 2 Ml Vial) 4 mg IV Q6H PRN PRN Reason: Nausea Stop: 03/07/21 01:14 Polyethylene Glycol (Polyethylene (Miralax) 17 Gm Pack) 17 gm PO DAILY PRN PRN Reason: Constipation Stop: 03/07/21 01:14 Polyethylene Glycol (Polyethylene (Miralax) 17 Gm Pack) 17 gm PO DAILY CHETNA Stop: 03/07/21 08:59 Last Admin: 02/05/21 08:48 Dose: 17 gm Documented by: Terazosin HCl (Terazosin Hcl 5 Mg Cap) 5 mg PO HS CHETNA Stop: 03/07/21 20:59 Vitamin D (Cholecalciferol 1,000 Units 25 Mcg Tab) 2,000 units PO DAILY CHETNA Stop: 03/07/21 08:59 Last Admin: 02/05/21 08:47 Dose: 2,000 units Documented by: (1) Hypertension Hypertension type: essential hypertension Qualified Code(s): I10 - Essential (primary) hypertension
[2021-02-05] MEDS ORDERED: ATORVASTATIN 40 MG TAB PO SCH (21:00)
[2021-02-05] MEDS ORDERED: TERAZOSIN HCL 5 MG CAP PO SCH (21:00)
--- NOTE | 2021-02-05 22:25 | Consultation Report ---
DATE OF CONSULTATION: 02/05/2021 NEPHROLOGY CONSULTATION REASON FOR CONSULT: Acute renal failure on background chronic kidney disease IV. HISTORY OF PRESENT ILLNESS: The patient is a 80-year-old male with known CKD stage IV with a baseline creatinine in the mid 2s followed by Dr. An Gooden with [facility]. The patient was sent over to the Emergency Department by his PCP because of abnormal labs, which was done as an outpatient showing worsened kidney function. Renal function was abnormal with a creatinine of 3. The patient presented to the Emergency Department. He was not having any symptoms at all. Blood pressure was high and it is still high. He was not having any nausea, vomiting, diarrhea, chest pain, shortness of breath, orthopnea or any new medication. Since admission renal function got better overnight without really doing anything. He did not get IV fluid and he did not get any diuretics and essentially all of his outpatient medication was continued. He had a Duplex of his lower extremity done to evaluate for DVT and was negative. He had a CT abdomen and pelvis done yesterday which shows moderate to marked bilateral renal atrophy, otherwise unremarkable. PAST MEDICAL AND SURGICAL HISTORY: Includes hypertension, longstanding duration, CKD stage IV with a baseline creatinine in the low to mid 2s, history of cardiac arrhythmia, on chronic amiodarone, history of sinus bradycardia with first-degree heart block, most likely history of [place] in the past, hyperlipidemia, obesity. ALLERGIES: List was reviewed and he is not allergic to any medications. HOME MEDICATIONS: List was also reviewed in detail and is as per the reconciliation list. The patient takes Lasix 20 mg once daily and has only been on this medication for the last few months. He also takes hydralazine, terazosin, gabapentin, diltiazem 180, calcitriol, amiodarone, allopurinol. He denies taking any NSAIDs. REVIEW OF SYSTEMS: A full 12-point system was reviewed and is completely negative. He does have chronic lower extremity edema which may have got slightly worse in the recent past. He does have chronic back pain. FAMILY HISTORY: Negative for renal disease or dialysis. PHYSICAL EXAMINATION: GENERAL: Elderly white male who is not in any overt respiratory distress. VITAL SIGNS: Blood pressure is 195/83, oxygen saturation 95% on room air. HEENT: Mucous membrane is moist. NECK: Supple. No jugular venous distention. Cannot assess JVD because of short, obese neck. CHEST: Bilateral, clear to auscultation. CARDIOVASCULAR: S1, S2 regular, slightly bradycardic. ABDOMEN: Soft, nontender. EXTREMITIES: Shows 1+ edema bilaterally. NEUROLOGIC: Awake, alert, oriented x3. Normal speech. Moving all 4 extremities. LABORATORY TESTS: Urine test was done yesterday and is negative for blood. Does have 1+ protein with some epithelial cells. Creatinine on admission yesterday was 3.01, BUN was 51. This morning labs look slightly better with a BUN of 43 and a creatinine of 2.6, magnesium is 2.6, WBC count 4.65, hemoglobin 9.6. ASSESSMENT AND PLAN: A 80-year-old male with CKD IV which seems to have progressed and was admitted because of abnormal kidney function for which I have been consulted. Acute renal failure: I really do not think there is much acute component here and I think this is just progression of his CKD and has progressed further. He does not appear to be dehydrated at all. If anything, he is fluid overloaded with very high blood pressure and some edema. Renal imaging already done and shows bilateral severe renal atrophy with cyst, but no hydronephrosis. Urine sediment is suggestive of chronic findings. RECOMMENDATIONS: 1. I do not believe he needs to be inpatient much further as there is no definitive treatment for the time being for CKD. 2. Blood pressure needs to be controlled a little bit more. For this, I would recommend to increase the Lasix to 40 daily, go up on hydralazine as well as add low dose nifedipine. Even though patient is on diltiazem, unfortunately with his history of heart block and already somewhat bradycardic, I do not want to go up on that dose. He already has an appointment to see Dr. An Gooden in few days where will make further adjustment. Thank you very much for the consult.
[2021-02-06] MEDS: HEPARIN SOD 5,000 UNIT/0.5 ML VIAL SQ SCH (06:18)
[2021-02-06 06:52] LABS: Basophils # (auto) 0.03 K/uL (0-0.2); Basophils % (auto) 0.7 %; Eosinophils # (auto) 0.27 K/uL (0-0.5); Eosinophils % (auto) 6.4 %; Hematocrit (blood only) 29.5 % (42-52); Hemoglobin 9.6 g/dL (14.0-18.0); Immature Granulocytes # (auto) 0.01 K/uL (0.00-0.02); Immature Granulocytes % (auto) 0.2 %; Lymphocytes # (auto) 0.62 K/uL (1.2-3.4); Lymphocytes % (auto) 14.7 %; Mean Corpuscular Hemoglobin 30.8 pg (25-34); Mean Corpuscular Hgb Conc 32.5 g/dL (32-36); Mean Corpuscular Volume 94.6 fL (80-100); Mean Platelet Volume 10.1 fL (7.4-10.4); Monocytes # (auto) 0.46 K/uL (0.11-0.59); Monocytes % (auto) 10.9 %; Neutrophils # (auto) 2.83 K/uL (1.4-6.5); Neutrophils % (auto) 67.1 %; Platelet Count 140 K/uL (130-400); RDW Coefficient of Variation 15.5 % (11.5-14.5); Red Blood Count 3.12 M/uL (4.7-6.1); White Blood Count 4.22 K/uL (4.8-10.8)
[2021-02-06 07:08] LABS: Calcium 8.7 mg/dl (8.5-10.1); Creatinine Clr Calc Pharmacy 29.4 ml/min; Est GFR (African American) 26.3 ml/min; Est GFR (Non-African American) 22.7 ml/min; Magnesium 2.6 mg/dl (1.8-2.4); Phosphorus 3.6 mg/dl (2.5-4.9)
[2021-02-06] MEDS: INSULIN ASPART 100 UNITS/ML 3 ML PEN SC SCH ×2 (07:27→11:26)
[2021-02-06] MEDS: dilTIAZem HCL 180 MG CAPCR PO SCH (08:36)
[2021-02-06] MEDS: GABAPENTIN 100 MG CAP PO SCH (08:36)
[2021-02-06] MEDS: CEROVITE ADV FORMULA TAB PO SCH (08:36)
[2021-02-06] MEDS: DOCUSATE SODIUM 100 MG CAP PO SCH (08:37)
[2021-02-06] MEDS: allopurinoL 100 MG TAB PO SCH (08:37)
[2021-02-06] MEDS: FUROSEMIDE 40 MG TAB PO SCH (08:37)
[2021-02-06] MEDS: AMIODARONE 200 MG TAB PO SCH (08:37)
[2021-02-06] MEDS: hydrALAZINE TAB 50 MG TAB PO SCH (08:37)
[2021-02-06] MEDS: CHOLECALCIFEROL 1,000 UNITS 25 MCG TAB PO SCH (08:37)
[2021-02-06] MEDS: CYANOCOBALAMIN 500 MCG TABLET (VITAMIN B-12) PO SCH (08:37)
[2021-02-06] MEDS: POLYETHYLENE (MIRALAX) 17 GM PACK PO SCH (08:38)
--- NOTE | 2021-02-06 10:40 | Hospitalist Progress Note ---
Date of Service February 06, 2021 Assessment & Plan (1) JENNIFER (acute kidney injury): Has chronic kidney disease with baseline creatinine about 1.8-2 Has had creatinine checked at doctor's office which was noted to be 3 and the patient was complaining weakness His lisinopril has been on hold Creatinine has been improving CT scan of the abdomen and pelvis showed moderate to marked bilateral renal atrophy. No ureteral calculi. No hydronephrosis. Possible punctate left renal calculus and mildly distended bladder Appreciate nephrology input and recommendation His creatinine is at his baseline of 2.58 on 02/06/2021 He will be discharged home this afternoon (2) Paroxysmal atrial fibrillation: Off anticoagulation long time ago EKG remains in sinus rhythm Continue with current medications Bilateral leg swelling Ultrasound has been negative for any DVT Will need more Lasix to continue diuresis Appreciate nephrology input and recommendation The leg swelling are much better He was advised to keep the legs elevated while in bed and while sitting on a chair if possible (3) Hypertension: Has been on multiple medications to control blood pressure Lisinopril has been on hold due to increasing creatinine Blood pressure remains elevated at 195/83 Medications have been adjusted by the industrial workers Likely discharge home tomorrow (4) Type 2 diabetes mellitus: We will continue with SSI (5) Hyperlipidemia: Continue statin DVT prophylaxis Subcu heparin Will be discharged home this afternoon He will continue his outpatient physical therapy as before Admission and Anticipated Discharge Date Admission Date: February 04, 2021 Subjective 02/05/2021 The patient was seen and examined in telemetry unit He was admitted with JENNIFER on CKD from his primary care's office Only complaint was weakness He remains stable and has been feeling a little better since admission 02/06/2021 The patient was seen and examined in medical telemetry unit He has been feeling much better and denies any significant symptoms His leg swelling are better to and he has been ambulating in the room without any difficulties He wants to go home this afternoon Review of Systems Review of Systems: All systems reviewed and are unremarkable except as noted below Neurologic: + generalized weakness Physical Exam Physical Exam: Sitting on a chair without any acute distress Constitutional: well developed, well nourished and + obese; not ill appearing Eyes: PERRL, conjunctivae normal, anicteric sclerae ENMT: external ear and nose normal, oropharynx normal Neck: trachea midline, no thyromegaly Respiratory: no respiratory distress Auscultation: lungs clear to auscultation bilaterally and + diminished lung sounds Cardiovascular: Rate/Rhythm: regular rate and regular rhythm Heart Sounds: no murmur Extremities: + edema (Much improved) Gastrointestinal (Abdomen): Inspection/Auscultation: normal bowel sounds; abdomen not distended Percussion/Palpation: abdomen soft; abdomen nontender Musculoskeletal: No acute arthritis in any joint Neurologic: Alert, awake and oriented x3. No focal sensory and motor deficit appreciated Psychiatric: A+Ox3, euthymic affect Lymphatic: no cervical or axillary lymphadenopathy Results & Data Results & Data ([facility]) Vital Signs (Past 12 Hours) Vital Signs Temp Pulse Resp BP Pulse Ox 02/06/21 06:53 36.7 C 61 18 142/65 H 90 02/06/21 04:19 36.8 C 68 18 140/62 95 02/05/21 23:26 36.8 C 66 18 138/52 L 94 Laboratory Results Short CBC 02/06/21 Range/Units 06:36 WBC 4.22 L (4.8-10.8) K/uL Hgb 9.6 L (14.0-18.0) g/dL Hct 29.5 L (42-52) % Plt Count 140 (130-400) K/uL BMP 02/06/21 06:36 Sodium 143 Potassium 4.0 Chloride 110 H Carbon Dioxide 26 BUN 44 H Creatinine 2.58 H Glucose 119 H Calcium 8.7 Urine 02/05/21 Range/Units 12:00 Urine Color Cancelled Urine Appearance Cancelled Urine pH Cancelled Ur Specific [place] Cancelled Urine Protein Cancelled Urine Glucose (UA) Cancelled Medications Administered Current Inpatient Medications Acetaminophen (Acetaminophen 325 Mg Tab) 650 mg PO Q4H PRN PRN Reason: Pain or Fever Stop: 03/07/21 01:14 Last Admin: 02/05/21 20:23 Dose: 650 mg Documented by: Allopurinol (Allopurinol 100 Mg Tab) 100 mg PO BID [facility] Stop: 03/07/21 08:59 Last Admin: 02/06/21 08:37 Dose: 100 mg Documented by: Amiodarone HCl (Amiodarone 200 Mg Tab) 200 mg PO DAILY [facility] Stop: 03/07/21 08:59 Last Admin: 02/06/21 08:37 Dose: 200 mg Documented by: Atorvastatin Calcium (Atorvastatin 40 Mg Tab) 40 mg PO QPM [facility] Stop: 03/07/21 20:59 Last Admin: 02/05/21 20:27 Dose: 40 mg Documented by: Calcitriol (Calcitriol 0.25 Mcg Capsule) 0.25 mcg PO MoWeFr@0900 [facility] Stop: 03/07/21 01:59 Last Admin: 02/05/21 02:15 Dose: 0.25 mcg Documented by: Cyanocobalamin (Cyanocobalamin 500 Mcg Tablet (Vitamin B-12)) 500 mcg PO DAILY [facility] Stop: 03/07/21 08:59 Last Admin: 02/06/21 08:37 Dose: 500 mcg Documented by: Dextrose (Dextrose 50% 50 Ml Syringe) 25 - 50 ml IV UD PRN; Protocol PRN Reason: Hypoglycemia Protocol Stop: 03/07/21 05:14 Diltiazem HCl (Diltiazem Hcl 180 Mg Capcr) 180 mg PO DAILY [facility] Stop: 03/07/21 08:59 Last Admin: 02/06/21 08:36 Dose: 180 mg Documented by: Docusate Sodium (Docusate Sodium 100 Mg Cap) 100 mg PO BID [facility] Stop: 03/07/21 08:59 Last Admin: 02/06/21 08:37 Dose: 100 mg Documented by: Furosemide (Furosemide 40 Mg Tab) 40 mg PO DAILY [facility] Stop: 03/07/21 13:44 Last Admin: 02/06/21 08:37 Dose: 40 mg Documented by: Gabapentin (Gabapentin 100 Mg Cap) 100 mg PO BID [facility] Stop: 03/07/21 08:59 Last Admin: 02/06/21 08:36 Dose: 100 mg Documented by: Glucagon (Glucagon For Inj 1 Mg Vial) 1 mg IM UD PRN; Protocol PRN Reason: Hypoglycemia Protocol Stop: 03/07/21 05:14 Glucose (Glucose 40% Gel 15 Gm Tube) 15 - 30 gm PO UD PRN; Protocol PRN Reason: Hypoglycemia Protocol Stop: 03/07/21 05:14 Glucose (Glucose 10 Tabs/Tube) 4 - 8 tabs PO UD PRN; Protocol PRN Reason: Hypoglycemia Protocol Stop: 03/07/21 05:14 Heparin Sodium (Porcine) (Heparin Sod 5,000 Unit/0.5 Ml Vial) 5,000 units SQ Q8 [facility] Stop: 03/07/21 01:14 Last Admin: 02/06/21 06:18 Dose: 5,000 units Documented by: Hydralazine HCl (Hydralazine Hcl 20 Mg/Ml Vial) 7.5 mg IV Q6H PRN PRN Reason: Hypertension Stop: 03/07/21 01:14 Hydralazine HCl (Hydralazine Tab 50 Mg Tab) 100 mg PO BID [facility] Stop: 03/07/21 13:44 Last Admin: 02/06/21 08:37 Dose: 100 mg Documented by: Insulin Aspart (Insulin Aspart 100 Units/Ml 3 Ml Pen) 0 units SC ACHS [facility] Stop: 03/07/21 07:29 Last Admin: 02/06/21 07:27 Dose: Not Given Documented by: Miscellaneous (Carbohydrates For Hypoglycemia ) 15 - 30 gm PO UD PRN PRN Reason: Hypoglycemia Treatment Stop: 03/07/21 05:14 Multivitamins/Minerals (Cerovite Adv Formula Tab) 1 tab PO DAILY [facility] Stop: 03/07/21 08:59 Last Admin: 02/06/21 08:36 Dose: 1 tab Documented by: Nitroglycerin (Nitroglycerin Sl 0.4 Mg/Tab Tab) 0.4 mg SL UD PRN PRN Reason: Chest Pain Stop: 03/07/21 01:14 Ondansetron HCl (Ondansetron Inj 2 Mg/Ml 2 Ml Vial) 4 mg IV Q6H PRN PRN Reason: Nausea Stop: 03/07/21 01:14 Polyethylene Glycol (Polyethylene (Miralax) 17 Gm Pack) 17 gm PO DAILY PRN PRN Reason: Constipation Stop: 03/07/21 01:14 Polyethylene Glycol (Polyethylene (Miralax) 17 Gm Pack) 17 gm PO DAILY [facility] Stop: 03/07/21 08:59 Last Admin: 02/06/21 08:38 Dose: 17 gm Documented by: Terazosin HCl (Terazosin Hcl 5 Mg Cap) 5 mg PO HS [facility] Stop: 03/07/21 20:59 Last Admin: 02/05/21 20:26 Dose: 5 mg Documented by: Vitamin D (Cholecalciferol 1,000 Units 25 Mcg Tab) 2,000 units PO DAILY [facility] Stop: 03/07/21 08:59 Last Admin: 02/06/21 08:37 Dose: 2,000 units Documented by: (1) Hypertension Hypertension type: essential hypertension Qualified Code(s): I10 - Essential (primary) hypertension
--- NOTE | 2021-02-06 16:28 | Discharge Summary ---
Date of Service February 06, 2021 Admission HPI Per Admitting Provider DICTATED BY: Immanuel Zurita MD DATE OF ADMISSION: 02/04/2021 CHIEF COMPLAINT: Abnormal labs, JENNIFER. HISTORY OF PRESENT ILLNESS: This is a 80-year-old male with past medical history significant for type 2 diabetes, chronic kidney disease stage IV, paroxysmal atrial fibrillation, history of hypertension, morbid obesity, gout arthropathy, osteoarthritis of right knee, was sent in by PCP because of abnormal labs showing creatinine of 3. His baseline creatinine is around 1.8-2. The patient is currently resting comfortably and hemodynamically stable. He has chronic back pain for which he had steroid shot in the past, but lately was not given because of lower extremity edema as per patient. He says lower extremity edema is better now. He ambulates with a walker. Appetite is okay. No chest pain or sob. No dysphagia, no headache, no blurred vision, no earache, no runny nose, no sore throat, no nausea, no abdominal pain. Normal bowel and bladder movements. No blood in stool or black stools. No burning micturition. Currently resting comfortably and hemodynamically stable. Admission Exam Per Admitting Provider GENERAL: The patient is obese, not in acute distress. VITAL SIGNS: Temperature 36.5, pulse 62, respiratory rate 21, blood pressure 197/101, oxygen 95% on room air. HEENT: Pupils equal, round, and reactive to light. Oral mucosa moist. NECK: No JVD, no neck masses. CARDIOVASCULAR: S1, S2 heard, regular rate and rhythm, no murmur, no gallop. RESPIRATORY SYSTEM: Normal AP diameter. No accessory muscle use. No wheezing, no crackles. ABDOMEN: Soft, bowel sounds present, nontender. No distention. CENTRAL NERVOUS SYSTEM: Cranial nerves II-XII grossly intact. Nonfocal. EXTREMITIES: Bilateral lower extremities gross edema seen, no erythema seen. Principal Diagnosis JENNIFER on CKD, paroxysmal atrial fibrillation not on any anticoagulation, bilateral leg swelling, type 2 diabetes, hypertension Discharge Exam Constitutional well developed, well nourished and + obese; not ill appearing Eyes PERRL, conjunctivae normal, anicteric sclerae ENMT external ear and nose normal, oropharynx normal Neck trachea midline, no thyromegaly Respiratory no respiratory distress Auscultation: lungs clear to auscultation bilaterally and + diminished lung sounds Cardiovascular Rate/Rhythm: regular rate and regular rhythm Heart Sounds: no murmur Extremities: + edema (Much improved) Gastrointestinal (Abdomen) Inspection/Auscultation: normal bowel sounds; abdomen not distended Percussion/Palpation: abdomen soft; abdomen nontender Psychiatric A+Ox3, euthymic affect Lymphatic no cervical or axillary lymphadenopathy Discharge Data Allergies Allergy/AdvReac Type Severity Reaction Status Date / Time No Known Allergies Allergy Unknown Verified 02/04/21 17:09 Consultations 02/04/21 20:11 ED Decision to Admit Stat 02/05/21 08:00 Consult Nephrology Routine Ordered Studies 02/04/21 19:46 CT abd pelvis wo con Stat 02/05/21 01:15 US venous doppler LE BI Routine Hospital Course (1) JENNIFER (acute kidney injury): Has chronic kidney disease with baseline creatinine about 1.8-2 Has had creatinine checked at doctor's office which was noted to be 3 and the patient was complaining weakness His lisinopril has been on hold Creatinine has been improving CT scan of the abdomen and pelvis showed moderate to marked bilateral renal atrophy. No ureteral calculi. No hydronephrosis. Possible punctate left renal calculus and mildly distended bladder Appreciate nephrology input and recommendation His creatinine is at his baseline of 2.58 on 02/06/2021 He will be discharged home this afternoon (2) Paroxysmal atrial fibrillation: Off anticoagulation long time ago EKG remains in sinus rhythm Continue with current medications Bilateral leg swelling Ultrasound has been negative for any DVT Will need more Lasix to continue diuresis Appreciate nephrology input and recommendation The leg swelling are much better He was advised to keep the legs elevated while in bed and while sitting on a chair if possible (3) Hypertension: Has been on multiple medications to control blood pressure Lisinopril has been on hold due to increasing creatinine Blood pressure remains elevated at 195/83 Medications have been adjusted by the industrial radiographer Likely discharge home tomorrow (4) Type 2 diabetes mellitus: We will continue with SSI (5) Hyperlipidemia: Continue statin DVT prophylaxis Subcu heparin Will be discharged home this afternoon He will continue his outpatient physical therapy as before Total Time Total Time Spent Total Time Spent (In Minutes): 35 Minutes Total Time Includes: Examination of the Patient, Discharge Planning, Medication Reconciliation and Communication With Other Providers Discharge Plan Discharge Items Patient Disposition: Home - Self-Care Reason For Visit: ABNORMAL LABS Discharge Diagnosis: JENNIFER on CKD, paroxysmal atrial fibrillation not on any anticoagulation, bilateral leg swelling, type 2 diabetes, hypertension Condition on Discharge: Good Activity: Resume your previous activity Activity Comment: Continue outpatient physical therapy Non-emergency contact: Primary Care Provider Call non-emergency contact if: you have any medication questions and your symptoms worsen Follow-up/Referrals: Claudio Kurtz, [Primary Care Provider] - (Will call you on Sunday with an appointment with primary care physician within 1 week) Diet: Carb Consistent or DM2, Heart Healthy and Low Sodium (2gm) Addtl Attending Provider Instructions: Please take precaution to avoid falls Use your walking device while you are at home and ambulating The dose of your furosemide has been increased to 40 mg daily The dose of your hydralazine has been increased to 100 mg twice daily Please keep your appointment with your industrial radiographer Dr. Miller as scheduled Pending Studies at Discharge: No Stand-Alone Forms: My [employer], Smoking Cessation Medications and DC Order Prescriptions: New furosemide 40 mg tablet 40 mg PO DAILY Qty: 30 RF: 0 hydralazine 100 mg tablet 100 mg PO BID Qty: 60 RF: 0 Continued allopurinol 100 mg tablet 100 mg PO BID Qty: 60 RF: 2 amiodarone 200 mg tablet 200 mg PO DAILY Qty: 90 RF: 3 atorvastatin 40 mg tablet 40 mg PO QPM RF: 0 (DME) OneTouch Ultra Blue Test Strip strip See Dose Instructions .ROUTE .MEDSUPPLY Qty: 10 RF: 0 cyanocobalamin (vitamin B-12) 500 mcg tablet 500 mcg PO DAILY RF: 0 cholecalciferol (vitamin D3) 50 mcg (2,000 unit) capsule 50 mcg PO DAILY RF: 0 polyethylene glycol 3350 17 gram/dose powder 17 g PO DAILY RF: 0 multivitamin with minerals Tablet 1 tab PO DAILY RF: 0 docusate sodium 100 mg capsule 100 mg PO BID RF: 0 calcitriol [Rocaltrol] 0.25 mcg capsule 0.25 mcg PO MOWEFR RF: 0 acetaminophen 325 mg capsule 650 mg PO Q4H PRN (Reason: Fever Or Pain) RF: 0 diltiazem HCl 180 mg capsule,extended release 24hr 180 mg PO DAILY RF: 0 lisinopril 20 mg tablet 20 mg PO BID RF: 0 gabapentin 100 mg capsule 100 mg PO BID RF: 0 terazosin 5 mg capsule 5 mg PO HS RF: 0 Changed hydralazine 50 mg tablet 100 mg PO BID Qty: 0 RF: 0 furosemide 20 mg tablet 40 mg PO DAILY Qty: 0 RF: 0 Discharge Orders: Discharge Order (Routine); Ordered 02/06/21 Ordered By: Khai Mehta Admission Data Admit Date/Time: 02/04/21 22:00 Attending Provider: Khai Mehta Admit Provider: Immanuel Zurita Primary Care Provider: Claudio Kurtz Other Providers: Immanuel Zurita ; An Gooden ; Dl Fonseca ; Arleen Sesay ; Erna Toth ; Rachelle French ; Ida Robertson Other Interventions: Discharge Summary Assessment (RN) Last Done: 02/06/21 11:12
--- NOTE | 2021-02-28 07:37 | Coding Query ---
A supporting diagnosis is required for the test/procedure performed on this patient in order for us to be reimbursed by the patient's insurance. Please provide a supporting diagnosis for the following test/procedure listed below next to the test name along with your signature. *If there is no additional diagnosis for this patient that would support the following test/procedure please document that below next to the test/procedure. Test(s)/Procedure(s) that require a supporting diagnosis: Venous Doppler Study DIAGNOSIS:___rule out DVT Provider Signature: __Immanuel Cardozau Date: __march 02 2021 Thank you Mamta Arzola Health Information Management Once completed, please kindly fax back to [phone] For questions please call [phone] [facility]
== END 2021-02-06 13:04 | disposition home health service (06) | DRG 684 ==
LOC: ED 15:49 → INTOOBSV 22:00 → 2S 22:00 → 2N 02-05 15:06

== ENCOUNTER 2021-04-18 21:57 | Observation (INO) ==
[2021-04-18 22:44] LABS: Alanine Aminotransferase 27 U/L (12-78); Albumin Level 3.1 gm/dl (3.4-5.0); Aspartate Aminotransferase 18 U/L (15-37); BUN Creatinine Ratio 15.3 (10-20); Blood Urea Nitrogen 58 mg/dl (7-18); Calcium 8.9 mg/dl (8.5-10.1); Carbon Dioxide 23 mmol/L (21-32); Chloride 105 mmol/L (98-107); Creatinine Clr Calc Pharmacy 20.2 ml/min; Est GFR (African American) 16.5 ml/min; Est GFR (Non-African American) 14.3 ml/min; Glucose 149 mg/dl (70-99); Magnesium 2.8 mg/dl (1.8-2.4); Potassium 4.3 mmol/L (3.5-5.1); Sodium 140 mmol/L (136-145)
[2021-04-18 22:51] LABS: Basophils # (auto) 0.02 K/uL (0-0.2); Basophils % (auto) 0.3 %; Eosinophils # (auto) 0.21 K/uL (0-0.5); Eosinophils % (auto) 3.5 %; Hematocrit (blood only) 32.7 % (42-52); Hemoglobin 10.7 g/dL (14.0-18.0); Immature Granulocytes # (auto) 0.02 K/uL (0.00-0.02); Immature Granulocytes % (auto) 0.3 %; Lymphocytes # (auto) 0.36 K/uL (1.2-3.4); Lymphocytes % (auto) 6.1 %; Mean Corpuscular Hemoglobin 29.7 pg (25-34); Mean Corpuscular Hgb Conc 32.7 g/dL (32-36); Mean Corpuscular Volume 90.8 fL (80-100); Mean Platelet Volume 10.8 fL (7.4-10.4); Monocytes # (auto) 0.55 K/uL (0.11-0.59); Monocytes % (auto) 9.3 %; Neutrophils # (auto) 4.77 K/uL (1.4-6.5); Neutrophils % (auto) 80.5 %; Platelet Count 137 K/uL (130-400); RDW Coefficient of Variation 15.7 % (11.5-14.5); RDW Standard Deviation 52.4 fL (36.4-46.3); White Blood Count 5.93 K/uL (4.8-10.8)
[2021-04-18 22:54] LABS: Alkaline Phosphatase 81 U/L (45-117); Bilirubin,Total 0.4 mg/dl (0.2-1); Globulin 3.1 gm/dl (2.5-4.0); Total Protein 6.2 gm/dl (6.4-8.2); Troponin I < 0.015 ng/ml (0-0.045)
[2021-04-18] MEDS ORDERED: SODIUM CHLORIDE 0.9% 1000ML 250 ML IV ONE (23:20)
--- NOTE | 2021-04-19 00:11 | Emergency Department Note ---
History of Present Illness General Chief complaint: Vertigo Stated complaint: Previously Dizzy Time Seen by Provider: 04/18/21 21:59 History of Present Illness This 81-year-old presents to the ER complaining of feeling weak who had an episode of confusion that has improved today after driving for 1/2 hours from [place] and not drinking much Location: Generalized Quality: Weak Severity: Moderate Duration: This evening Timing: This evening Context: was concerned and called EMS Modifying factors: better with rest; worse with activity Patient denies chest pain, dyspnea, fevers, vomiting, diarrhea, localized weakness. Home Medications Medication Instructions Recorded Confirmed Type allopurinol 100 mg tablet 100 mg PO BID #60 tab 04/14/19 02/04/21 Rx atorvastatin 40 mg tablet 40 mg PO QPM 06/06/19 02/04/21 History blood sugar diagnostic (OneTouch #10 ea 06/06/19 12/20/20 History Ultra Blue Test Strip) cyanocobalamin (vitamin B-12) 500 500 mcg PO DAILY 11/12/20 02/04/21 History mcg tablet acetaminophen 325 mg capsule 650 mg PO Q4H PRN cap 12/20/20 02/04/21 History calcitriol 0.25 mcg capsule 0.25 mcg PO MOWEFR cap 12/20/20 02/04/21 History (Rocaltrol) cholecalciferol (vitamin D3) 50 50 mcg PO DAILY 12/20/20 02/04/21 History mcg (2,000 unit) capsule docusate sodium 100 mg capsule 100 mg PO BID 12/20/20 02/04/21 History multivitamin with minerals 1 tab PO DAILY 12/20/20 02/04/21 History polyethylene glycol 3350 17 17 g PO DAILY 12/20/20 02/04/21 History gram/dose oral powder amiodarone 200 mg tablet 200 mg PO DAILY #90 tab 01/18/21 02/04/21 Rx diltiazem HCl 180 mg 180 mg PO DAILY 02/04/21 02/04/21 History capsule,extended release 24 hr gabapentin 100 mg capsule 100 mg PO BID 02/04/21 02/04/21 History lisinopril 20 mg tablet 20 mg PO BID 02/04/21 02/04/21 History terazosin 5 mg capsule 5 mg PO HS 02/04/21 02/04/21 History furosemide 20 mg tablet 40 mg PO DAILY #0 tab 02/06/21 02/04/21 Rx furosemide 40 mg tablet 40 mg PO DAILY #30 tab 02/06/21 Rx hydralazine 100 mg tablet 100 mg PO BID #60 tab 02/06/21 Rx hydralazine 50 mg tablet 100 mg PO BID #0 tab 02/06/21 02/04/21 Rx Allergies Allergy/AdvReac Type Severity Reaction Status Date / Time No Known Allergies Allergy Unknown Verified 02/04/21 17:09 Past Med/Surg History Medical History (Updated 04/19/21 @ 00:16 by Shima Barraza PA-C) Anemia Hypertension Surgical History Hx of appendectomy Social History Smoking Status: Never smoker Hx Alcohol Use: Yes Hx Substance Use: No Preferred Language: Guyanese Communication Ability: Effective Golf Course Laborer Required: No Beliefs That Will Affect Care: None marital status: Current Living Situation: Alone Feels Safe at Home: Yes Assistive Devices: Walker Review of Systems A total of 10 systems reviewed and were otherwise negative Physical Exam Vital Signs Vital Signs - 24 hr 04/18/21 22:05 04/18/21 22:19 04/18/21 22:45 Temperature 36.4 C L Temperature Source Oral Pulse Rate - Lying 67 Pulse Rate - Sitting 65 Pulse Rate - Standing 71 Pulse Rate 64 70 Respiratory Rate 16 20 Respiratory Effort / Characteristics Non-Labored Spontaneous Respiratory Depth Normal Respiratory Pattern Regular Blood Pressure - Lying 154/76 H Blood Pressure - Sitting 151/76 H Blood Pressure- Standing 112/58 L Blood Pressure 142/71 H Blood Pressure Mean 94 Blood Pressure Position Sitting Pulse Oximetry 96 96 Oxygen Delivery Method Room Air Room Air Sepsis Recent Fever Within 48 Hours No Sepsis New/Unexplained Change in Mental Status No Sepsis Action Taken by Nursing No Action Required VITALS: Vitals are noted on the nurse's note and reviewed by myself. Vital signs stable. GENERAL: Pleasant male answering questions appropriately, in no acute distress, nondiaphoretic, well-developed well-nourished. SKIN: The skin was without rashes, erythema, edema, or bruising. There is no tenting of the skin. Capillary reflex less than 2 seconds. HEAD: Normocephalic atraumatic. EARS: External auditory canals clear, EYES: Pupils equal round and reactive to light and accommodation. Conjunctivae without injection, sclerae without icterus. Extraocular movements intact. NOSE: Patent, turbinates without inflammation or discharge. MOUTH: Mucous membranes mildly dry. Pharynx without erythema or exudate. Uvula midline. Airway patent. Tongue does not deviate. NECK: Supple without nuchal rigidity. No lymphadenopathy. No thyromegaly. Cervical spine is nontender. No JVD. HEART: Regular rate and rhythm LUNGS: Clear to auscultation bilaterally without wheezes, rales or rhonchi. No retractions or accessory muscle use. ABDOMEN: Positive bowel sounds x 4. Normal tympanic percussion. Soft, no ntender, without masses or organomegaly. Chacon sign negative. No guarding or rebound tenderness. No CVA tenderness MUSCULOSKELETAL: No muscle atrophy, erythema, noted. NEURO: Patient was alert and oriented to person place and time. Normal sensation to light and sharp touch. No focal neurological deficits. Course Administered Medications Discontinued Medications Sodium Chloride (Nss 1000ml) 250 mls @ 999 mls/hr IV .Q16M ONE Stop: 04/18/21 23:35 Last Admin: 04/18/21 23:49 Dose: 999 mls/hr Documented by: [id number] Medical Decision Making Medical Records Attestation: I reviewed the patient's medical records. Home Medications Current Medication List: was personally reviewed by me Laboratory Data Attestation: I reviewed the patient's lab results. Result diagrams: 04/18/21 21:54 04/18/21 21:54 Lab Results 04/18/21 04/18/21 Range/Units 21:54 21:54 WBC 5.93 (4.8-10.8) K/uL RBC 3.60 L (4.7-6.1) M/uL Hgb 10.7 L (14.0-18.0) g/dL Hct 32.7 L (42-52) % MCV 90.8 (80-100) fL MCH 29.7 (25-34) pg MCHC 32.7 (32-36) g/dL RDW Std Deviation 52.4 H (36.4-46.3) fL RDW Coeff of Joanne 15.7 H (11.5-14.5) % Plt Count 137 (130-400) K/uL MPV 10.8 H (7.4-10.4) fL Immature Gran % (Auto) 0.3 % Neut % (Auto) 80.5 % Lymph % (Auto) 6.1 % [place] % (Auto) 9.3 % Eos % (Auto) 3.5 % Baso % (Auto) 0.3 % Neut # (Auto) 4.77 (1.4-6.5) K/uL Lymph # (Auto) 0.36 L (1.2-3.4) K/uL [place] # (Auto) 0.55 (0.11-0.59) K/uL Eos # (Auto) 0.21 (0-0.5) K/uL Baso # (Auto) 0.02 (0-0.2) K/uL Immature Gran # (Auto) 0.02 (0.00-0.02) K/uL Sodium 140 (136-145) mmol/L Potassium 4.3 (3.5-5.1) mmol/L Chloride 105 (98-107) mmol/L Carbon Dioxide 23 (21-32) mmol/L Anion Gap 12.0 H (3-11) BUN 58 H (7-18) mg/dl Creatinine 3.76 H (0.6-1.4) mg/dl Est Cr Clr Drug Dosing 20.2 ml/min Est GFR ( Amer) 16.5 ml/min Est GFR (Non-Af Amer) 14.3 ml/min BUN/Creatinine Ratio 15.3 (10-20) Glucose 149 H (70-99) mg/dl Calcium 8.9 (8.5-10.1) mg/dl Magnesium 2.8 H (1.8-2.4) mg/dl Total Bilirubin 0.4 (0.2-1) mg/dl AST 18 (15-37) U/L ALT 27 (12-78) U/L Alkaline Phosphatase 81 (45-117) U/L Troponin I < 0.015 (0-0.045) ng/ml Total Protein 6.2 L (6.4-8.2) gm/dl Albumin 3.1 L (3.4-5.0) gm/dl Globulin 3.1 (2.5-4.0) gm/dl Albumin/Globulin Ratio 1.0 (0.9-2) TSH 3.430 (0.300-4.500) uIu/ml Imaging Data Attestation: I personally reviewed and interpreted this imaging study as follows: MDM Narrative Prior records/ancillary studies reviewed and summarized above. Nursing notes reviewed. Additional history obtained from EMS. The patient's history was concerning for confusion episode and feeling weak. Differential diagnosis: Etiologies such as metabolic, infection, hypo/hyperglycemia, electrolyte abnormalities, cardiac sources, intracerebral event, toxicologic, neurologic, as well as others were entertained. Physical examination: As above. ER treatment provided: IV Lock An order was placed for continuous cardiac monitoring. The monitor shows a rate of 60-100 with a sinus rhythm. IV fluids On reassessment the patient felt better. Diagnostics interpretation by me: ECG: Ordered for altered mental status EKG: Normal sinus, left axis deviation, first-degree AV block, poor baseline, no acute ST-T wave changes, rate of 63. Impression normal sinus rhythm with a first-degree AV block interpreted by myself The labs revealed acute kidney injury negative troponin Euthyroid Imaging studies: Chest x-ray with no acute consolidation, infection or free air per my interpretation CT HEAD: No intracranial hemorrhage, mass-effect, or edema. Atrophy and chronic white matter changes. No fracture. Radiologist: Sylvain Miranda MD Consultation: A consultation was placed with the hospitalist. The case was discussed and diagnostics were reviewed. The patient was evaluated in the ER for further treatment. Exam and history seem consistent with acute kidney injury with an episode of altered mental status that has improved. Patient was given a small bolus of fluids. Is a history of chronic kidney disease. He is higher than baseline. Medicine was consulted. He will be evaluated for admission. By the evaluation outlined above emergent etiologies such as electrolyte abnormalities, cardiac sources, intracerebral event, toxologic, neurologic, abnormalities blood glucose, as well as others were deemed relatively unlikely. The pt informed about the findings as listed above. All questions were answered and pleased with the treatment. The chart was completed utilizing [employer] voice recognition software. Grammatical errors, random word insertions, pronoun errors, and incomplete sentences are an occassional consequence of this system due to software limitations, ambient noise, and hardware issues. Any formal questions or concerns about the content, text, or information contained within the body of this dictation should be directly addressed to the physician retail store assistant for clarification. Impression & Plan JENNIFER (acute kidney injury), AMS (altered mental status) Discharge Plan Visit Data Chief Complaint: Vertigo Stated Complaint: Previously Dizzy ED Provider: David Tay ED Midlevel Provider: Shima Barraza Discharge Problem: JENNIFER (acute kidney injury), AMS (altered mental status) Patient Disposition: Admitted As Inpatient Condition: Fair Forms Stand Alone Forms: [facility] [employer] Prescriptions Prescriptions: No Action allopurinol 100 mg tablet 100 mg PO BID Qty: 60 RF: 2 amiodarone 200 mg tablet 200 mg PO DAILY Qty: 90 RF: 3 atorvastatin 40 mg tablet 40 mg PO QPM RF: 0 (DME) [employer] Ultra Blue Test Strip strip See Dose Instructions .ROUTE .MEDSUPPLY Qty: 10 RF: 0 cyanocobalamin (vitamin B-12) 500 mcg tablet 500 mcg PO DAILY RF: 0 cholecalciferol (vitamin D3) 50 mcg (2,000 unit) capsule 50 mcg PO DAILY RF: 0 polyethylene glycol 3350 17 gram/dose powder 17 g PO DAILY RF: 0 multivitamin with minerals Tablet 1 tab PO DAILY RF: 0 docusate sodium 100 mg capsule 100 mg PO BID RF: 0 calcitriol [Rocaltrol] 0.25 mcg capsule 0.25 mcg PO MOWEFR RF: 0 acetaminophen 325 mg capsule 650 mg PO Q4H PRN (Reason: Fever Or Pain) RF: 0 diltiazem HCl 180 mg capsule,extended release 24hr 180 mg PO DAILY RF: 0 lisinopril 20 mg tablet 20 mg PO BID RF: 0 gabapentin 100 mg capsule 100 mg PO BID RF: 0 terazosin 5 mg capsule 5 mg PO HS RF: 0 hydralazine 50 mg tablet 100 mg PO BID Qty: 0 RF: 0 furosemide 20 mg tablet 40 mg PO DAILY Qty: 0 RF: 0 furosemide 40 mg tablet 40 mg PO DAILY Qty: 30 RF: 0 hydralazine 100 mg tablet 100 mg PO BID Qty: 60 RF: 0 Referrals Referrals: Claudio Kurtz DO [Primary Care Provider] -
--- NOTE | 2021-04-19 00:12 | Emergency Department Note ---
ED Visit Note I have personally seen and evaluated the patient with the physician assistant golf course superintendent. I agree with the diagnostic/management decisions and have personally been involved in these decisions and agree with the diagnosis. .
[2021-04-19 01:30] LABS: Appearance Urine Clear (Clear); Bacteria Urine Automated Negative (Negative); Bilirubin Urine Negative (Negative); Blood Urine Negative (Negative); Color Urine Yellow; Epithelial Cell Urine Auto >30 /lpf (0-5); Glucose Urine UA Negative (Negative); Ketones Urine Negative (Negative); Leukocyte Esterase Urine Trace (Negative); Nitrite Urine Negative (Negative); Protein Urine Negative (Negative); RBC Urine Automated 0-4 /hpf (0-4); Specific Gravity Urine 1.013 (1.000-1.030); Urobilinogen Urine Negative (Negative)
--- NOTE | 2021-04-19 02:48 | History and Physical Report ---
DATE OF ADMISSION: 04/19/2021. CHIEF COMPLAINT: Heaviness in his shoulder. HISTORY OF PRESENT ILLNESS: This is an 81-year-old male with past medical history significant for type 2 diabetes, paroxysmal atrial fibrillation, chronic kidney disease stage IV, hypertension, white coat syndrome of diagnosis of hypertension, morbid obesity, gout arthropathy, osteoarthritis, who presents with feeling of heaviness in his shoulders and his thought his face looked ashen. As soon as he sat in the ambulance, his symptoms resolved. The patient drove 4-1/2 hours from [place] today, but this episode happened after 4-5 hours after coming home. The patient ambulates with a walker at home. He has chronic lower extremity edema. Currently, resting comfortably and hemodynamically stable. His baseline creatinine last time at discharge was 2.5, today his creatinine is 3.7. Currently denies any chest pain, no shortness of breath, no cough, no fever, no chills, no headache, no blurred vision, no earache, no runny nose, no sore throat. Appetite is okay. No difficulty swallowing. No abdominal pain currently. Normal bowel and bladder movements. Resting comfortably and hemodynamically stable. ALLERGIES: No known drug allergies. PAST MEDICAL HISTORY: As mentioned above. PAST SURGICAL HISTORY: Injection of the lumbosacral spine, appendectomy. MEDICATIONS: Currently the patient is on Tylenol 650 mg p.o. q. 4 hours p.r.n., allopurinol 100 mg p.o. b.i.d., amiodarone 200 mg p.o. daily, atorvastatin 40 mg p.o. daily, calcitriol 0.25 mcg p.o. Sunday, Sunday, Sunday, vitamin D 2000 units p.o. daily, vitamin B12 500 mcg p.o. daily, diltiazem 180 mg p.o. daily, Colace 100 mg p.o. b.i.d., Lasix 40 mg p.o. daily, gabapentin 100 mg p.o. b.i.d., hydralazine 100 mg p.o. b.i.d., lisinopril 20 mg p.o. b.i.d., multivitamins 1 tablet daily, MiraLax 17 g p.o. daily, terazosin 5 mg p.o. at bedtime. FAMILY HISTORY: Significant for father has hypertension; mother has possible aneurysm; paternal grandfather had skin cancer and diabetes. SOCIAL HISTORY: , lives with his . No smoking. Alcohol occasional. No drug use. REVIEW OF SYSTEMS: As per HPI. Rest of review of systems is negative. PHYSICAL EXAMINATION: GENERAL: The patient is obese, not in acute distress. VITAL SIGNS: Temperature 36.4, pulse 65, respiratory rate 20, blood pressure 132/70, oxygen 95% on room air. HEENT: Pupils equal, round, and reactive to light. Oral mucosa moist. NECK: No JVD. No neck masses. CARDIOVASCULAR: S1 and S2 heard. Regular rate and rhythm. No murmur, no gallop. RESPIRATORY SYSTEM: Normal AP diameter. No accessory muscle use. No wheezing, no crackles. ABDOMEN: Soft, bowel sounds present, nontender, no distention. CENTRAL NERVOUS SYSTEM: Cranial nerves II-XII grossly intact, nonfocal. EXTREMITIES: Bilateral lower extremity edema present, no erythema seen. LABORATORY DATA: WBC 5.9, hemoglobin 10.7, hematocrit 32.7, platelets 137. Sodium 140, potassium 4.3, chloride 105, bicarbonate 23, BUN 58, creatinine 3.7, serum glucose 149, calcium 8.9, magnesium 2.8, total bilirubin 0.4, AST 18, ALT 27, alkaline phosphatase 81, troponin I less than 0.015. Urinalysis, trace leukocyte esterase. SARS-CoV-2 PCR negative. IMAGING DATA: CT of the head, no acute findings. Chest x-ray, no acute findings. ASSESSMENT AND PLAN: This is an 81-year-old male who presents with heaviness in his shoulder after driving 4-1/2 hours from [place]. It happened after 4 hours after coming home. Currently, seems comfortable. 1. Possible dehydration: The thought that he was feeling weak and ashen, and he felt heaviness in the shoulder, but it resolved as soon as he got in the ambulance. Currently, resting comfortably and hemodynamically stable. Except for his acute kidney injury, rest of the labs seem okay. Will observe in [facility] tele. Check orthostatics. PT/OT. 2. Acute kidney injury on chronic kidney disease stage IV: Baseline creatinine is around 2.5, currently creatinine of 3.7. Holding his lisinopril and Lasix. Getting fluids for 1 liter. Will monitor labs in a.m. 3. History of atrial fibrillation: On Cartia XT, amiodarone, not on any anticoagulation. 4. History of gout: On allopurinol. 5. Hypertension: On hydralazine, terazosin, Cartia, lisinopril. Currently holding lisinopril and diuretics. Will monitor his blood pressure. 6. Type 2 diabetes: Currently not on any medication. Will follow HbA1c levels. 7. Hyperlipidemia: On statin. 8. History of renal lesions: Needs followup. 9. History of aneurysm of ascending aorta 4.7 cm: Needs followup. 10. Deep venous thrombosis prophylaxis: Heparin subcutaneously. DISPOSITION: Closely monitor in the med tele. PT/OT prior to discharge. Social service to help with discharge planning. Job ID: [id number] MONAE
[2021-04-19] MEDS ORDERED: SODIUM CHLORIDE 0.9% 1000ML 1,000 ML IV SCH (04:48)
[2021-04-19] MEDS ORDERED: ACETAMINOPHEN 325 MG TAB PO PRN (04:48)
[2021-04-19] MEDS ORDERED: ONDANSETRON INJ 2 MG/ML 2 ML VIAL IV PRN (04:48)
[2021-04-19] MEDS ORDERED: NITROGLYCERIN SL 0.4 MG/TAB TAB SL PRN (04:48)
[2021-04-19 06:14] LABS: Basophils # (auto) 0.03 K/uL (0-0.2); Basophils % (auto) 0.6 %; Eosinophils # (auto) 0.22 K/uL (0-0.5); Eosinophils % (auto) 4.1 %; Hematocrit (blood only) 31.2 % (42-52); Hemoglobin 10.3 g/dL (14.0-18.0); Immature Granulocytes # (auto) 0.01 K/uL (0.00-0.02); Immature Granulocytes % (auto) 0.2 %; Lymphocytes # (auto) 0.63 K/uL (1.2-3.4); Lymphocytes % (auto) 11.6 %; Mean Corpuscular Hemoglobin 30.1 pg (25-34); Mean Corpuscular Volume 91.2 fL (80-100); Mean Platelet Volume 10.9 fL (7.4-10.4); Monocytes # (auto) 0.41 K/uL (0.11-0.59); Monocytes % (auto) 7.6 %; Neutrophils # (auto) 4.13 K/uL (1.4-6.5); Neutrophils % (auto) 75.9 %; Platelet Count 135 K/uL (130-400); RDW Coefficient of Variation 15.7 % (11.5-14.5); RDW Standard Deviation 52.3 fL (36.4-46.3); Red Blood Count 3.42 M/uL (4.7-6.1); White Blood Count 5.43 K/uL (4.8-10.8)
[2021-04-19 06:35] LABS: BUN Creatinine Ratio 16.7 (10-20); Calcium 8.5 mg/dl (8.5-10.1); Creatinine Clr Calc Pharmacy 21.5 ml/min; Est GFR (African American) 17.9 ml/min; Est GFR (Non-African American) 15.4 ml/min; Magnesium 2.7 mg/dl (1.8-2.4); Potassium 4.4 mmol/L (3.5-5.1)
--- NOTE | 2021-04-19 06:59 | CT Scan Report ---
CT SCAN OF THE BRAIN WITHOUT IV CONTRAST CLINICAL HISTORY: Fall. Dizziness. COMPARISON STUDY: CT of the brain dated 11/05/2020. TECHNIQUE: Unenhanced axial CT scan of the brain is performed from the vertex to the skull base. A do se lowering technique was utilized adhering to the principles of ALARA. The examination is modestly d egraded by motion artifact. CT DOSE: 691.05 mGy.cm FINDINGS: Brain parenchyma: There are age-related involutional changes noting moderate subcortical and periven tricular microangiopathic change. There is no hemorrhage, mass effect, or evidence of acute territori al ischemia by CT criteria. Sam-white matter differentiation is preserved. No extra-axial fluid anai ection is seen. Ventricles, sulci, cisterns: Prominent secondary to involutional change. Intracranial vasculature: There is atherosclerotic calcification of the cavernous carotid and vertebr al arteries. Calvarium: The skeletal structures are osteopenic. No depressed calvarial fracture is identified. Sinuses and mastoids: The visualized paranasal sinuses are clear. The mastoid air cells are well pneu matized. Orbits: The bony orbits are grossly intact. There are bilateral ocular lens implants. IMPRESSION: There is no hemorrhage, mass effect, or evidence of acute territorial ischemia by CT jordan dang. ACT 112: Negative or not required by law. Electronically signed by: Jag Fam M.D. 04/19/2021 6:57 AM
--- NOTE | 2021-04-19 07:04 | XRay Report ---
XR chest 1V portable HISTORY: 81 years-old Male weak acute weakness COMPARISON: CT abdomen and pelvis 02/04/2021 TECHNIQUE: AP view of the chest FINDINGS: Cardiac silhouette is moderately enlarged. Calcified plaque of the thoracic aorta. Descending thoraci c aortic tortuosity redemonstrated. No pneumothorax, pleural effusion, airspace consolidation or over t pulmonary edema. Mild chronic appearing interstitial coarsening of the lung bases. Degenerative abbe nges of the shoulders and spine. IMPRESSION: No acute process. ACT 112: Negative or not required by law. The above report was generated using voice recognition software. It may contain grammatical, syntax o r spelling errors. Electronically signed by: Russell Thompson M.D. 04/19/2021 7:02 AM
[2021-04-19] MEDS: DOCUSATE SODIUM 100 MG CAP PO SCH ×2 (08:09→20:10)
[2021-04-19] MEDS: POLYETHYLENE (MIRALAX) 17 GM PACK PO SCH (08:10)
[2021-04-19] MEDS: dilTIAZem HCL 180 MG CAPCR PO SCH (08:12)
[2021-04-19] MEDS: GABAPENTIN 100 MG CAP PO SCH ×2 (08:13→20:08)
[2021-04-19] MEDS: allopurinoL 100 MG TAB PO SCH ×2 (08:13→20:07)
[2021-04-19] MEDS: AMIODARONE 200 MG TAB PO SCH (08:13)
[2021-04-19] MEDS: CYANOCOBALAMIN 500 MCG TABLET (VITAMIN B-12) PO SCH (08:14)
[2021-04-19] MEDS: hydrALAZINE TAB 50 MG TAB PO SCH ×2 (08:14→20:08)
[2021-04-19] MEDS: CEROVITE ADV FORMULA TAB PO SCH (08:14)
[2021-04-19] MEDS: HEPARIN SOD 5,000 UNIT/0.5 ML VIAL SQ SCH ×2 (08:15→20:08)
[2021-04-19] MEDS: CHOLECALCIFEROL 1,000 UNITS 25 MCG TAB PO SCH (08:15)
--- NOTE | 2021-04-19 17:02 | Hospitalist Progress Note ---
Date of Service April 19, 2021 Assessment & Plan (1) Weakness: Plan: Complaint bilateral shoulder heaviness without any shortness of breath or chest pain after driving for about four and half hours from [place] Symptoms resolved in the ambulance Denies any more symptoms this morning during my examination EKG and troponin have been negative for any ACS (2) Acute kidney injury superimposed on chronic kidney disease: Plan: Noted to have increasing creatinine and BUN compared with before The similar condition happened during his last admission to this hospital Hasn't been drinking enough fluid for the last few days Generally weak We'll give cautious amount of intravenous fluid and monitor PRP (3) Paroxysmal atrial fibrillation: Plan: Remains in sinus rhythm with controlled rate Echo that was done in November of this year showed normal EF (4) Type 2 diabetes mellitus: Plan: Diet controlled Globin A1c-6.1- (5) Hypertension: Plan: Blood pressure remains on the upper side Continue current medications Admission and Anticipated Discharge Date Admission Date: April 19, 2021 Subjective 04/19/2021 The patient was seen and examined in medical telemetry unit He has been feeling better since admission His shoulder discomfort is resolved Denies any other symptoms of chest pain, palpitation or shortness of breath Review of Systems Review of Systems: All systems reviewed and are unremarkable except as noted below Physical Exam Physical Exam: Lying in bed comfortably Constitutional: well developed, well nourished and + obese; not ill appearing Eyes: PERRL, conjunctivae normal, anicteric sclerae ENMT: external ear and nose normal, oropharynx normal Neck: trachea midline, no thyromegaly Respiratory: no respiratory distress and no cough Auscultation: lungs clear to auscultation bilaterally Cardiovascular: Rate/Rhythm: regular rate and regular rhythm; not tachycardic Heart Sounds: normal S1 and normal S2; no murmur Extremities: + edema (1-2+ bilateral leg edema) Gastrointestinal (Abdomen): normal bowel sounds, soft, nontender, no hepatosplenomegaly Musculoskeletal: No acute arthritis in any joint Neurologic: Alert, awake and oriented x3 Psychiatric: A+Ox3, euthymic affect Results & Data Results & Data ([facility]) Vital Signs (Past 12 Hours) Vital Signs Temp Pulse Resp BP Pulse Ox Pulse Ox 04/19/21 15:36 36.6 C 61 18 174/79 H 95 04/19/21 11:13 36.4 C L 61 18 155/74 H 95 04/19/21 07:04 36.4 C L 62 18 176/86 H 97 04/19/21 05:02 36.8 C 63 21 168/85 H 96 96 Laboratory Results Short CBC 04/18/21 04/19/21 Range/Units 21:54 05:17 WBC 5.93 5.43 (4.8-10.8) K/uL Hgb 10.7 L 10.3 L (14.0-18.0) g/dL Hct 32.7 L 31.2 L (42-52) % Plt Count 137 135 (130-400) K/uL BMP 04/18/21 04/19/21 21:54 05:17 Sodium 140 140 Potassium 4.3 4.4 Chloride 105 106 Carbon Dioxide 23 24 BUN 58 H 59 H Creatinine 3.76 H 3.53 H Glucose 149 H 130 H Calcium 8.9 8.5 Cardiac Enzymes 04/18/21 Range/Units 21:54 Troponin I < 0.015 (0-0.045) ng/ml Liver Function 04/18/21 Range/Units 21:54 Total Bilirubin 0.4 (0.2-1) mg/dl AST 18 (15-37) U/L ALT 27 (12-78) U/L Alkaline Phosphatase 81 (45-117) U/L Albumin 3.1 L (3.4-5.0) gm/dl Urine 04/19/21 Range/Units 01:10 Urine Color Yellow Urine Appearance Clear (Clear) Urine pH 5.0 (4.5-7.5) Ur Specific Dickson 1.013 (1.000-1.030) Urine Protein Negative (Negative) Urine Glucose (UA) Negative (Negative) Medications Administered Current Inpatient Medications Acetaminophen (Acetaminophen 325 Mg Tab) 650 mg PO Q4H PRN PRN Reason: Pain or Fever Stop: 05/19/21 04:47 Allopurinol (Allopurinol 100 Mg Tab) 100 mg PO BID CHETNA Stop: 05/19/21 08:59 Last Admin: 04/19/21 08:13 Dose: 100 mg Documented by: Amiodarone HCl (Amiodarone 200 Mg Tab) 200 mg PO DAILY CHETNA Stop: 05/19/21 08:59 Last Admin: 04/19/21 08:13 Dose: 200 mg Documented by: Atorvastatin Calcium (Atorvastatin 40 Mg Tab) 40 mg PO QPM CHETNA Stop: 05/19/21 20:59 Calcitriol (Calcitriol 0.25 Mcg Capsule) 0.25 mcg PO MOWEFR CHETNA Stop: 05/20/21 01:49 Cyanocobalamin (Cyanocobalamin 500 Mcg Tablet (Vitamin B-12)) 500 mcg PO DAILY CHETNA Stop: 05/19/21 08:59 Last Admin: 04/19/21 08:14 Dose: 500 mcg Documented by: Diltiazem HCl (Diltiazem Hcl 180 Mg Capcr) 180 mg PO DAILY CHETNA Stop: 05/19/21 08:59 Last Admin: 04/19/21 08:12 Dose: 180 mg Documented by: Docusate Sodium (Docusate Sodium 100 Mg Cap) 100 mg PO BID CHETNA Stop: 05/19/21 08:59 Last Admin: 04/19/21 08:09 Dose: Not Given Documented by: Gabapentin (Gabapentin 100 Mg Cap) 100 mg PO BID CHETNA Stop: 05/19/21 08:59 Last Admin: 04/19/21 08:13 Dose: 100 mg Documented by: Heparin Sodium (Porcine) (Heparin Sod 5,000 Unit/0.5 Ml Vial) 5,000 units SQ Q12 CHETNA Stop: 05/19/21 08:59 Last Admin: 04/19/21 08:15 Dose: 5,000 units Documented by: Hydralazine HCl (Hydralazine Tab 50 Mg Tab) 100 mg PO BID CHETNA Stop: 05/19/21 08:59 Last Admin: 04/19/21 08:14 Dose: 100 mg Documented by: Sodium Chloride (Nss 1000ml) 1,000 mls @ 80 mls/hr IV .[id number] CHETNA Stop: 04/19/21 17:17 Last Admin: 04/19/21 05:20 Dose: 80 mls/hr Documented by: Multivitamins/Minerals (Cerovite Adv Formula Tab) 1 tab PO DAILY CHETNA Stop: 05/19/21 08:59 Last Admin: 04/19/21 08:14 Dose: 1 tab Documented by: Nitroglycerin (Nitroglycerin Sl 0.4 Mg/Tab Tab) 0.4 mg SL UD PRN PRN Reason: Chest Pain Stop: 05/19/21 04:47 Ondansetron HCl (Ondansetron Inj 2 Mg/Ml 2 Ml Vial) 4 mg IV Q6H PRN PRN Reason: Nausea Stop: 05/19/21 04:47 Polyethylene Glycol (Polyethylene (Miralax) 17 Gm Pack) 17 gm PO DAILY CHETNA Stop: 05/19/21 08:59 Last Admin: 04/19/21 08:10 Dose: Not Given Documented by: Terazosin HCl (Terazosin Hcl 5 Mg Cap) 5 mg PO HS CHETNA Stop: 05/19/21 20:59 Vitamin D (Cholecalciferol 1,000 Units 25 Mcg Tab) 2,000 units PO DAILY CHETNA Stop: 05/19/21 08:59 Last Admin: 04/19/21 08:15 Dose: 2,000 units Documented by: (1) Hypertension Hypertension type: essential hypertension Qualified Code(s): I10 - Essential (primary) hypertension
[2021-04-19] MEDS: ATORVASTATIN 40 MG TAB PO SCH (20:07)
[2021-04-19] MEDS: TERAZOSIN HCL 5 MG CAP PO SCH (20:07)
[2021-04-20] MEDS ORDERED: CALCITRIOL 0.25 MCG CAPSULE PO SCH (01:50)
[2021-04-20 06:53] LABS: Basophils # (auto) 0.03 K/uL (0-0.2); Basophils % (auto) 0.7 %; Eosinophils # (auto) 0.34 K/uL (0-0.5); Eosinophils % (auto) 7.9 %; Hematocrit (blood only) 29.3 % (42-52); Hemoglobin 9.6 g/dL (14.0-18.0); Immature Granulocytes # (auto) 0.01 K/uL (0.00-0.02); Immature Granulocytes % (auto) 0.2 %; Lymphocytes # (auto) 0.61 K/uL (1.2-3.4); Lymphocytes % (auto) 14.3 %; Mean Corpuscular Hemoglobin 30.3 pg (25-34); Mean Corpuscular Hgb Conc 32.8 g/dL (32-36); Mean Corpuscular Volume 92.4 fL (80-100); Mean Platelet Volume 10.4 fL (7.4-10.4); Monocytes # (auto) 0.34 K/uL (0.11-0.59); Monocytes % (auto) 7.9 %; Neutrophils # (auto) 2.95 K/uL (1.4-6.5); Platelet Count 128 K/uL (130-400); RDW Coefficient of Variation 15.5 % (11.5-14.5); RDW Standard Deviation 52.8 fL (36.4-46.3); Red Blood Count 3.17 M/uL (4.7-6.1); White Blood Count 4.28 K/uL (4.8-10.8)
[2021-04-20 07:16] LABS: BUN Creatinine Ratio 17.9 (10-20); Blood Urea Nitrogen 56 mg/dl (7-18); Calcium 8.4 mg/dl (8.5-10.1); Carbon Dioxide 25 mmol/L (21-32); Chloride 109 mmol/L (98-107); Est GFR (African American) 20.6 ml/min; Est GFR (Non-African American) 17.7 ml/min; Glucose 105 mg/dl (70-99); Magnesium 2.8 mg/dl (1.8-2.4); Potassium 4.7 mmol/L (3.5-5.1); Sodium 141 mmol/L (136-145)
[2021-04-20 07:21] LABS: Phosphorus 3.9 mg/dl (2.5-4.9); Troponin I < 0.015 ng/ml (0-0.045)
[2021-04-20] MEDS: CEROVITE ADV FORMULA TAB PO SCH (09:03)
[2021-04-20] MEDS: HEPARIN SOD 5,000 UNIT/0.5 ML VIAL SQ SCH ×2 (09:03→21:12)
[2021-04-20] MEDS: CHOLECALCIFEROL 1,000 UNITS 25 MCG TAB PO SCH (09:04)
[2021-04-20] MEDS: hydrALAZINE TAB 50 MG TAB PO SCH ×2 (09:04→21:10)
[2021-04-20] MEDS: GABAPENTIN 100 MG CAP PO SCH ×2 (09:04→21:10)
[2021-04-20] MEDS: allopurinoL 100 MG TAB PO SCH ×2 (09:05→21:09)
[2021-04-20] MEDS: POLYETHYLENE (MIRALAX) 17 GM PACK PO SCH (09:06)
[2021-04-20] MEDS: DOCUSATE SODIUM 100 MG CAP PO SCH ×2 (09:06→21:16)
[2021-04-20] MEDS: AMIODARONE 200 MG TAB PO SCH (09:09)
[2021-04-20] MEDS: dilTIAZem HCL 180 MG CAPCR PO SCH (09:09)
[2021-04-20] MEDS: CYANOCOBALAMIN 500 MCG TABLET (VITAMIN B-12) PO SCH (11:03)
--- NOTE | 2021-04-20 16:43 | Electrocardiogram Report ---
Test Reason : Blood Pressure : / mmHG Vent. Rate : 063 BPM Atrial Rate : 063 BPM P-R Int : 252 ms QRS Dur : 088 ms QT Int : 470 ms P-R-T Axes : 077 -21 019 degrees QTc Int : 480 ms Poor data quality, interpretation may be adversely affected Sinus rhythm with 1st degree A-V block Minimal voltage criteria for LVH, may be normal variant Inferior infarct (cited on or before 04-FEB-2021) Anterior infarct (cited on or before 04-FEB-2021) Abnormal ECG When compared with ECG of 04-FEB-2021 17:35, No significant change Confirmed by Trev Morfin ([id number]) on 04/20/2021 4:43:02 PM Referred By: REFERRED SELF Confirmed By:Trev Morfin
--- NOTE | 2021-04-20 17:20 | Hospitalist Progress Note ---
Date of Service April 20, 2021 Assessment & Plan (1) Weakness: Plan: Complaint bilateral shoulder heaviness without any shortness of breath or chest pain after driving for about four and half hours from [place] Symptoms resolved in the ambulance Denies any more symptoms this morning during my examination EKG and troponin have been negative for any ACS (2) Acute kidney injury superimposed on chronic kidney disease: Plan: Noted to have increasing creatinine and BUN compared with before The similar condition happened during his last admission to this hospital Hasn't been drinking enough fluid for the last few days Generally weak We'll give cautious amount of intravenous fluid and monitor PRP Advised to drink more fluid Has bilateral edema so no more IV was given (3) Paroxysmal atrial fibrillation: Plan: Remains in sinus rhythm with controlled rate Echo that was done in November of this year showed normal EF (4) Type 2 diabetes mellitus: Plan: Diet controlled Globin A1c-6.1- (5) Hypertension: Plan: Blood pressure remains on the upper side Continue current medications Blood pressure remains on the upper side at systolic 177 Admission and Anticipated Discharge Date Admission Date: April 20, 2021 Subjective 04/19/2021 The patient was seen and examined in medical telemetry unit He has been feeling better since admission His shoulder discomfort is resolved Denies any other symptoms of chest pain, palpitation or shortness of breath 04/20/2021 The patient was seen and examined in medical telemetry unit He has been feeling better and wants to go home Advised to have more fluid to maintain kidney function Likely be discharged tomorrow Review of Systems Review of Systems: All systems reviewed and are unremarkable except as noted below Physical Exam Physical Exam: Lying in bed comfortably Constitutional: well developed, well nourished and + obese; not ill appearing Eyes: PERRL, conjunctivae normal, anicteric sclerae ENMT: external ear and nose normal, oropharynx normal Neck: trachea midline, no thyromegaly Respiratory: no respiratory distress and no cough Auscultation: lungs clear to auscultation bilaterally Cardiovascular: Rate/Rhythm: regular rate and regular rhythm; not tachycardic Heart Sounds: normal S1 and normal S2; no murmur Extremities: + edema (1-2+ bilateral leg edema) Gastrointestinal (Abdomen): normal bowel sounds, soft, nontender, no hepatosplenomegaly Psychiatric: A+Ox3, euthymic affect Results & Data Results & Data ([facility]) Vital Signs (Past 12 Hours) Vital Signs Temp Pulse Resp BP BP Pulse Ox 04/20/21 15:00 36.8 C 62 18 161/75 H 91 04/20/21 11:31 36.7 C 66 18 164/76 H 96 04/20/21 07:37 36.7 C 59 L 18 158/74 H 93 Laboratory Results Short CBC 04/20/21 Range/Units 06:27 WBC 4.28 L (4.8-10.8) K/uL Hgb 9.6 L (14.0-18.0) g/dL Hct 29.3 L (42-52) % Plt Count 128 L (130-400) K/uL BMP 04/20/21 06:27 Sodium 141 Potassium 4.7 Chloride 109 H Carbon Dioxide 25 BUN 56 H Creatinine 3.14 H D Glucose 105 H Calcium 8.4 L Cardiac Enzymes 04/20/21 Range/Units 06:27 Troponin I < 0.015 (0-0.045) ng/ml Medications Administered Current Inpatient Medications Acetaminophen (Acetaminophen 325 Mg Tab) 650 mg PO Q4H PRN PRN Reason: Pain or Fever Stop: 05/19/21 04:47 Allopurinol (Allopurinol 100 Mg Tab) 100 mg PO BID CHETNA Stop: 05/19/21 08:59 Last Admin: 04/20/21 09:05 Dose: 100 mg Documented by: Amiodarone HCl (Amiodarone 200 Mg Tab) 200 mg PO DAILY CHETNA Stop: 05/19/21 08:59 Last Admin: 04/20/21 09:09 Dose: 200 mg Documented by: Atorvastatin Calcium (Atorvastatin 40 Mg Tab) 40 mg PO QPM CHETNA Stop: 05/19/21 20:59 Last Admin: 04/19/21 20:07 Dose: 40 mg Documented by: Calcitriol (Calcitriol 0.25 Mcg Capsule) 0.25 mcg PO MOWEFR CHETNA Stop: 05/20/21 01:49 Last Admin: 04/20/21 01:31 Dose: 0.25 mcg Documented by: Cyanocobalamin (Cyanocobalamin 500 Mcg Tablet (Vitamin B-12)) 500 mcg PO DAILY CHETNA Stop: 05/19/21 08:59 Last Admin: 04/20/21 11:03 Dose: 500 mcg Documented by: Diltiazem HCl (Diltiazem Hcl 180 Mg Capcr) 180 mg PO DAILY CHETNA Stop: 05/19/21 08:59 Last Admin: 04/20/21 09:09 Dose: 180 mg Documented by: Docusate Sodium (Docusate Sodium 100 Mg Cap) 100 mg PO BID CHETNA Stop: 05/19/21 08:59 Last Admin: 04/20/21 09:06 Dose: Not Given Documented by: Gabapentin (Gabapentin 100 Mg Cap) 100 mg PO BID CHETNA Stop: 05/19/21 08:59 Last Admin: 04/20/21 09:04 Dose: 100 mg Documented by: Heparin Sodium (Porcine) (Heparin Sod 5,000 Unit/0.5 Ml Vial) 5,000 units SQ Q12 CHETNA Stop: 05/19/21 08:59 Last Admin: 04/20/21 09:03 Dose: 5,000 units Documented by: Hydralazine HCl (Hydralazine Tab 50 Mg Tab) 100 mg PO BID CHETNA Stop: 05/19/21 08:59 Last Admin: 04/20/21 09:04 Dose: 100 mg Documented by: Multivitamins/Minerals (Cerovite Adv Formula Tab) 1 tab PO DAILY CHETNA Stop: 05/19/21 08:59 Last Admin: 04/20/21 09:03 Dose: 1 tab Documented by: Nitroglycerin (Nitroglycerin Sl 0.4 Mg/Tab Tab) 0.4 mg SL UD PRN PRN Reason: Chest Pain Stop: 05/19/21 04:47 Ondansetron HCl (Ondansetron Inj 2 Mg/Ml 2 Ml Vial) 4 mg IV Q6H PRN PRN Reason: Nausea Stop: 05/19/21 04:47 Polyethylene Glycol (Polyethylene (Miralax) 17 Gm Pack) 17 gm PO DAILY CHETNA Stop: 05/19/21 08:59 Last Admin: 04/20/21 09:06 Dose: Not Given Documented by: Terazosin HCl (Terazosin Hcl 5 Mg Cap) 5 mg PO HS CHETNA Stop: 05/19/21 20:59 Last Admin: 04/19/21 20:07 Dose: 5 mg Documented by: Vitamin D (Cholecalciferol 1,000 Units 25 Mcg Tab) 2,000 units PO DAILY CHETNA Stop: 05/19/21 08:59 Last Admin: 04/20/21 09:04 Dose: 2,000 units Documented by: (1) Hypertension Hypertension type: essential hypertension Qualified Code(s): I10 - Essential (primary) hypertension
[2021-04-20] MEDS: ATORVASTATIN 40 MG TAB PO SCH (21:09)
[2021-04-20] MEDS: TERAZOSIN HCL 5 MG CAP PO SCH (21:11)
[2021-04-21 07:17] LABS: Basophils # (auto) 0.03 K/uL (0-0.2); Basophils % (auto) 0.6 %; Eosinophils # (auto) 0.37 K/uL (0-0.5); Eosinophils % (auto) 7.3 %; Hematocrit (blood only) 31.4 % (42-52); Hemoglobin 10.4 g/dL (14.0-18.0); Immature Granulocytes # (auto) 0.01 K/uL (0.00-0.02); Immature Granulocytes % (auto) 0.2 %; Lymphocytes # (auto) 0.78 K/uL (1.2-3.4); Lymphocytes % (auto) 15.5 %; Mean Corpuscular Hemoglobin 30.3 pg (25-34); Mean Corpuscular Hgb Conc 33.1 g/dL (32-36); Mean Corpuscular Volume 91.5 fL (80-100); Mean Platelet Volume 10.3 fL (7.4-10.4); Monocytes # (auto) 0.37 K/uL (0.11-0.59); Monocytes % (auto) 7.3 %; Neutrophils # (auto) 3.48 K/uL (1.4-6.5); Neutrophils % (auto) 69.1 %; Platelet Count 134 K/uL (130-400); RDW Coefficient of Variation 15.4 % (11.5-14.5); RDW Standard Deviation 51.6 fL (36.4-46.3); Red Blood Count 3.43 M/uL (4.7-6.1); White Blood Count 5.04 K/uL (4.8-10.8)
[2021-04-21 07:48] LABS: BUN Creatinine Ratio 19.1 (10-20); Calcium 8.7 mg/dl (8.5-10.1); Creatinine Clr Calc Pharmacy 25.3 ml/min; Potassium 4.3 mmol/L (3.5-5.1)
[2021-04-21] MEDS: allopurinoL 100 MG TAB PO SCH (08:43)
[2021-04-21] MEDS: CEROVITE ADV FORMULA TAB PO SCH (08:44)
[2021-04-21] MEDS: CHOLECALCIFEROL 1,000 UNITS 25 MCG TAB PO SCH (08:44)
[2021-04-21] MEDS: CYANOCOBALAMIN 500 MCG TABLET (VITAMIN B-12) PO SCH (08:44)
[2021-04-21] MEDS: dilTIAZem HCL 180 MG CAPCR PO SCH (08:44)
[2021-04-21] MEDS: GABAPENTIN 100 MG CAP PO SCH (08:44)
[2021-04-21] MEDS: hydrALAZINE TAB 50 MG TAB PO SCH (08:44)
[2021-04-21] MEDS: AMIODARONE 200 MG TAB PO SCH (08:44)
[2021-04-21] MEDS: POLYETHYLENE (MIRALAX) 17 GM PACK PO SCH (08:44)
[2021-04-21] MEDS: HEPARIN SOD 5,000 UNIT/0.5 ML VIAL SQ SCH (08:45)
[2021-04-21] MEDS: DOCUSATE SODIUM 100 MG CAP PO SCH (08:51)
--- NOTE | 2021-04-21 13:22 | Hospitalist Progress Note ---
Date of Service April 21, 2021 Assessment & Plan (1) Weakness: Plan: Complaint bilateral shoulder heaviness without any shortness of breath or chest pain after driving for about four and half hours from [place] Symptoms resolved in the ambulance Denies any more symptoms this morning during my examination EKG and troponin have been negative for any ACS Improved (2) Acute kidney injury superimposed on chronic kidney disease: Plan: Noted to have increasing creatinine and BUN compared with before The similar condition happened during his last admission to this hospital Hasn't been drinking enough fluid for the last few days Generally weak We'll give cautious amount of intravenous fluid and monitor PRP Advised to drink more fluid Has bilateral edema so no more IV was given His kidney function has been to baseline for the last 2 days Was advised to drink about 1.5 L of fluid a day and continue taking his medications (3) Paroxysmal atrial fibrillation: Plan: Remains in sinus rhythm with controlled rate Echo that was done in November of this year showed normal EF No acute symptoms (4) Type 2 diabetes mellitus: Plan: Diet controlled Globin A1c-6.1- (5) Hypertension: Plan: Blood pressure remains on the upper side Continue current medications Blood pressure remains on the upper side at systolic 177 Plan: Discharge home this afternoon Discussed in detail with the son and the Admission and Anticipated Discharge Date Admission Date: April 20, 2021 Subjective 04/19/2021 The patient was seen and examined in medical telemetry unit He has been feeling better since admission His shoulder discomfort is resolved Denies any other symptoms of chest pain, palpitation or shortness of breath 04/20/2021 The patient was seen and examined in medical telemetry unit He has been feeling better and wants to go home Advised to have more fluid to maintain kidney function Likely be discharged tomorrow 04/21/2021 The patient was seen and examined in medical telemetry unit He has been feeling much better and denies any significant symptoms His kidney function has been to his baseline Review of Systems Review of Systems: All systems reviewed and are unremarkable except as noted below Physical Exam Physical Exam: Lying in bed comfortably Constitutional: well developed, well nourished and + obese; not ill appearing Eyes: PERRL, conjunctivae normal, anicteric sclerae ENMT: external ear and nose normal, oropharynx normal Neck: trachea midline, no thyromegaly Respiratory: no respiratory distress and no cough Auscultation: lungs clear to auscultation bilaterally Cardiovascular: Rate/Rhythm: regular rate and regular rhythm; not tachycardic Heart Sounds: normal S1 and normal S2; no murmur Extremities: + edema (1-2+ bilateral leg edema) Gastrointestinal (Abdomen): normal bowel sounds, soft, nontender, no hepatosplenomegaly Musculoskeletal: No acute arthritis in any joint Neurologic: Alert, awake and oriented x3 Psychiatric: A+Ox3, euthymic affect Results & Data Results & Data ([facility]) Vital Signs (Past 12 Hours) Vital Signs Temp Pulse Pulse Resp BP Pulse Ox 04/21/21 11:46 37 C 58 L 16 137/77 94 04/21/21 07:01 36.8 C 58 L 18 177/82 H 96 04/21/21 04:19 37.2 C 67 20 169/76 H 94 04/21/21 01:33 66 Laboratory Results Short CBC 04/21/21 Range/Units 06:48 WBC 5.04 (4.8-10.8) K/uL Hgb 10.4 L (14.0-18.0) g/dL Hct 31.4 L (42-52) % Plt Count 134 (130-400) K/uL BMP 04/21/21 06:48 Sodium 140 Potassium 4.3 Chloride 111 H Carbon Dioxide 22 BUN 57 H Creatinine 2.97 H Glucose 104 H Calcium 8.7 (1) Hypertension Hypertension type: essential hypertension Qualified Code(s): I10 - Essential (primary) hypertension
--- NOTE | 2021-04-22 08:07 | Discharge Summary ---
Date of Service April 22, 2021 Admission HPI Per Admitting Provider DICTATED BY: Immanuel Zurita MD DATE OF ADMISSION: 04/19/2021. CHIEF COMPLAINT: Heaviness in his shoulder. HISTORY OF PRESENT ILLNESS: This is an 81-year-old male with past medical history significant for type 2 diabetes, paroxysmal atrial fibrillation, chronic kidney disease stage IV, hypertension, white coat syndrome of diagnosis of hypertension, morbid obesity, gout arthropathy, osteoarthritis, who presents with feeling of heaviness in his shoulders and his thought his face looked ashen. As soon as he sat in the ambulance, his symptoms resolved. The patient drove 4-1/2 hours from [place] today, but this episode happened after 4-5 hours after coming home. The patient ambulates with a walker at home. He has chronic lower extremity edema. Currently, resting comfortably and hemodynamically stable. His baseline creatinine last time at discharge was 2.5, today his creatinine is 3.7. Currently denies any chest pain, no shortness of breath, no cough, no fever, no chills, no headache, no blurred vision, no earache, no runny nose, no sore throat. Appetite is okay. No difficulty swallowing. No abdominal pain currently. Normal bowel and bladder movements. Resting comfortably and hemodynamically stable. Admission Exam Per Admitting Provider GENERAL: The patient is obese, not in acute distress. VITAL SIGNS: Temperature 36.4, pulse 65, respiratory rate 20, blood pressure 132/70, oxygen 95% on room air. HEENT: Pupils equal, round, and reactive to light. Oral mucosa moist. NECK: No JVD. No neck masses. CARDIOVASCULAR: S1 and S2 heard. Regular rate and rhythm. No murmur, no gallop. RESPIRATORY SYSTEM: Normal AP diameter. No accessory muscle use. No wheezing, no crackles. ABDOMEN: Soft, bowel sounds present, nontender, no distention. CENTRAL NERVOUS SYSTEM: Cranial nerves II-XII grossly intact, nonfocal. EXTREMITIES: Bilateral lower extremity edema present, no erythema seen. Principal Diagnosis Weakness with shoulder heaviness, no ACS, acute on chronic kidney disease, paroxysmal atrial fibrillation Discharge Exam Constitutional well developed, well nourished and + obese; not ill appearing Eyes PERRL, conjunctivae normal, anicteric sclerae ENMT external ear and nose normal, oropharynx normal Neck trachea midline, no thyromegaly Respiratory no respiratory distress and no cough Auscultation: lungs clear to auscultation bilaterally Cardiovascular Rate/Rhythm: regular rate and regular rhythm; not tachycardic Heart Sounds: normal S1 and normal S2; no murmur Extremities: + edema (1-2+ bilateral leg edema) Gastrointestinal (Abdomen) normal bowel sounds, soft, nontender, no hepatosplenomegaly Psychiatric A+Ox3, euthymic affect Discharge Data Allergies Allergy/AdvReac Type Severity Reaction Status Date / Time No Known Allergies Allergy Unknown Verified 04/19/21 01:02 Consultations 04/19/21 00:10 ED Decision to Admit Stat Ordered Studies 04/18/21 22:15 CT head/brain wo con Urgent Hospital Course (1) Weakness: Complaint bilateral shoulder heaviness without any shortness of breath or chest pain after driving for about four and half hours from [place] Symptoms resolved in the ambulance Denies any more symptoms this morning during my examination EKG and troponin have been negative for any ACS Improved (2) Acute kidney injury superimposed on chronic kidney disease: Noted to have increasing creatinine and BUN compared with before The similar condition happened during his last admission to this hospital Hasn't been drinking enough fluid for the last few days Generally weak We'll give cautious amount of intravenous fluid and monitor PRP Advised to drink more fluid Has bilateral edema so no more IV was given His kidney function has been to baseline for the last 2 days Was advised to drink about 1.5 L of fluid a day and continue taking his medications (3) Paroxysmal atrial fibrillation: Remains in sinus rhythm with controlled rate Echo that was done in November of this year showed normal EF No acute symptoms (4) Type 2 diabetes mellitus: Diet controlled Globin A1c-6.1- (5) Hypertension: Blood pressure remains on the upper side Continue current medications Blood pressure remains on the upper side at systolic 177 Discharge home this afternoon Discussed in detail with the son and the Total Time Total Time Spent Total Time Spent (In Minutes): 35 minutes Discharge Plan Discharge Items Patient Disposition: Home - Self-Care Reason For Visit: HEAVINESS IN SHOULDER Discharge Diagnosis: Weakness with shoulder heaviness, no ACS, acute on chronic kidney disease, paroxysmal atrial fibrillation Condition on Discharge: Fair Activity: Resume your previous activity Non-emergency contact: Primary Care Provider Call non-emergency contact if: you have any medication questions and your symptoms worsen Follow-up/Referrals: Claudio Kurtz DO [Primary Care Provider] - (Date & Time 04/26/2021 3:00 PM Provider Claudio Kurtz DO Department General Internal Medicine [facility] ) Diet: Heart Healthy Fluids: 1500ml (6 cups) Addtl Attending Provider Instructions: Please take precautions to avoid fall Take your medications regularly No change in new medications Pending Studies at Discharge: No Stand-Alone Forms: My [facility], Smoking Cessation Medications and DC Order Prescriptions: Continued allopurinol 100 mg tablet 100 mg PO BID Qty: 60 RF: 2 amiodarone 200 mg tablet 200 mg PO DAILY Qty: 90 RF: 3 atorvastatin 40 mg tablet 40 mg PO QPM RF: 0 cyanocobalamin (vitamin B-12) 500 mcg tablet 500 mcg PO DAILY RF: 0 cholecalciferol (vitamin D3) 50 mcg (2,000 unit) capsule 50 mcg PO DAILY RF: 0 polyethylene glycol 3350 17 gram/dose powder 17 g PO DAILY RF: 0 multivitamin with minerals Tablet 1 tab PO DAILY RF: 0 docusate sodium 100 mg capsule 100 mg PO BID RF: 0 calcitriol [Rocaltrol] 0.25 mcg capsule 0.25 mcg PO MOWEFR RF: 0 acetaminophen 325 mg capsule 650 mg PO Q4H PRN (Reason: Fever Or Pain) RF: 0 diltiazem HCl 180 mg capsule,extended release 24hr 180 mg PO DAILY RF: 0 lisinopril 20 mg tablet 20 mg PO BID RF: 0 gabapentin 100 mg capsule 100 mg PO BID RF: 0 terazosin 5 mg capsule 5 mg PO HS RF: 0 furosemide 40 mg tablet 40 mg PO DAILY Qty: 30 RF: 0 hydralazine 100 mg tablet 100 mg PO BID Qty: 60 RF: 0 Discharge Orders: Discharge Order (Routine); Ordered 04/21/21 Ordered By: Khai Mehta Admission Data Admit Date/Time: 04/20/21 11:24 Attending Provider: Khai Mehta Admit Provider: Immanuel Zurita Primary Care Provider: Claudio Kurtz Other Providers: Immanuel Zurita Other Interventions: Discharge Summary Assessment (RN) Last Done: 04/21/21 13:27
== END 2021-04-21 14:36 | disposition home or self-care (01) ==
LOC: 2N 21:57 → ED 21:57 → 2N 04-19 05:09